=== PATIENT | male | born 1980 | race African-American/Black ===

== ENCOUNTER 2017-01-22 15:03 | Inpatient (IN) | payer OTHER ==
[2017-01-22 16:03] VITALS: BMI 24.5
--- NOTE | 2017-01-22 16:58 | HP ---
Admission ROS [facility] Chief Complaint: I WANT TO GO TO REHAB Allergies/Adverse Reactions: Allergies Allergy/AdvReac Type Severity Reaction Status Date / Time No Known Allergies Allergy Verified 01/22/17 16:25 History of Present Illness: 36 YEARS OLD MALE WITH LONG HISTORY OF COCAINE, MARIJUANA, NICOTINE DEPENDENCE, DENIES MEDICAL ISSUE DENIES MENTAL ILLNESS IS ADMITTED TO REHAB "HAD UNPROTECTED SEX" TAKING TRUVADA X 30 DAYS, HAS OWN MEDICATION Exam Limitations: No Limitations - Ebola screening Have you traveled outside of the country in the last 21 days: No Have you had contact with anyone from an Ebola affected area: No Have you been sick,other than usual withdrawal symptoms: No Do you have a fever: No - Review of Systems Constitutional: Loss of Appetite, Unintentional Wgt. Loss, Unexplained wgt Loss EENT: reports: No Symptoms Reported Respiratory: reports: No Symptoms reported Cardiac: reports: No Symptoms Reported GI: reports: No Symptoms Reported : reports: No Symptoms Reported Musculoskeletal: reports: No Symptoms Reported Integumentary: reports: Rash (ON AND OFF YEARS) Neuro: reports: No Symptoms reported Endocrine: reports: No Symptoms Reported Hematology: reports: No Symptoms Reported Psychiatric: reports: No Sypmtoms Reported, Judgement Intact, Mood/Affect Appropiate, Orientated x3 Other Systems: Reviewed and Negative Patient History - Patient Medical History Hx Anemia: No Hx Asthma: No Hx Chronic Obstructive Pulmonary Disease (COPD): No Hx Cancer: No Hx Cardiac Disorders: No Hx Congestive Heart Failure: No Hx Hypertension: No Hx Hypercholesterolemia: No Hx Pacemaker: No HX Cerebrovascular Accident: No Hx Seizures: No Hx Dementia: No Hx Diabetes: No Hx Gastrointestinal Disorders: No Hx Liver Disease: No Hx Genitourinary Disorders: No Hx Sexually Transmitted Disorders: No Hx Renal Disease (ESRD): No Hx Thyroid Disease: No Hx Human Immunodeficiency Virus (HIV): No Hx Hepatitis C: No Hx Depression: No Hx Suicide Attempt: No Hx Bipolar Disorder: No Hx Schizophrenia: No - Patient Surgical History Past Surgical History: Yes Hx Neurologic Surgery: No Hx Cataract Extraction: No Hx Cardiac Surgery: No Hx Lung Surgery: No Hx Breast Surgery: No Hx Breast Biopsy: No Hx Abdominal Surgery: No Hx Appendectomy: No Hx Cholecystectomy: No Hx Genitourinary Surgery: No Hx Orthopedic Surgery: Yes (2007 RIGHT KNEE ) Anesthesia Reaction: No - PPD History Previous Implant?: Yes Documented Results: Negative w/o proof Implanted On Prior [facility] Admission?: No PPD to be Administered?: Yes - Smoking Cessation Smoking history: Current every day smoker Have you smoked in the past 12 months: Yes Aproximately how many cigarettes per day: 3 Hx Chewing Tobacco Use: No Initiated information on smoking cessation: Yes 'Breaking Loose' booklet given: 01/22/17 - Substance & Tx. History Hx Alcohol Use: No Hx Substance Use: Yes Substance Use Type: Cocaine, Marijuana, Opiates Hx Substance Use Treatment: Yes ([facility] - 01/14/17) - Substances Abused Heroin Route: Injection Frequency: 1-3 times last 30 days Amount used: 1 BAG Age of first use: 35 Date of Last Use: 01/20/17 Cocaine Route: Injection Frequency: Daily Amount used: 1/2 GRAM Age of first use: 35 Date of Last Use: 01/21/17 Family Disease History - Family Disease History Family History: Unremarkable Admission Physical Exam [facility] - Vital Signs Vital Signs: Vital Signs - 24 hr 01/22/17 16:01 Temperature 97.1 F L Pulse Rate 69 Respiratory 20 Rate Blood Pressure 126/89 - Physical General Appearance: Yes: No Apparent Distress, Appropriately Dressed, Thin HEENTM: Yes: Hearing grossly Normal, Normal ENT Inspection, Normocephalic, Normal Voice Respiratory: Yes: Chest Non-Tender, Lungs Clear, Normal Breath Sounds, No Respiratory Distress, No Accessory Muscle Use Neck: Yes: Supple, Trachea in good position Breast: Yes: Breasts Symetrical Cardiology: Yes: Regular Rhythm, Regular Rate, S1, S2 Abdominal: Yes: Non Tender, Soft Genitourinary: Yes: Within Normal Limits Back: Yes: Normal Inspection Musculoskeletal: Yes: full range of Motion, Gait Steady Extremities: Yes: Normal Inspection, Normal Range of Motion, Non-Tender Neurological: Yes: Fully Oriented, Alert, Motor Strength 5/5, Normal Mood/Affect , Normal Response Integumentary: Yes: Warm, Track [place] Lymphatic: Yes: Within Normal Limits - Diagnostic (1) Cocaine dependence, uncomplicated Current Visit: Yes Status: Chronic (2) Acneiform rash Current Visit: Yes Status: Chronic (3) Weight loss Current Visit: Yes Status: Acute Cleared for Admission [facility] - Detox or Rehab [facility] Level of Care: Observation Bed Detox Regimen/Protocol: Not Applicable Claeared for Rehab Admission: Yes [facility] Breath Alcohol Content Breath Alcohol Content: 0 Urine Drug Screen - Results Drug Screen Negative: No Urine Drug Screen Results: ERVIN-Cocaine, OPI-Opiates, BZO-Benzodiazepines
[2017-01-22] MEDS ORDERED: MAGNESIUM CITRATE 300 ML BOTTLE PO PRN (17:03)
[2017-01-22] MEDS ORDERED: P-EPHED 60MG/TRIPROLIDI 2.5MG TABLET PO PRN (17:03)
[2017-01-22] MEDS ORDERED: guaiFENesin/D-METHORPHAN HB 10 ML UNIT-DOSE CUPS PO PRN (17:03)
[2017-01-22] MEDS ORDERED: ACETAMINOPHEN 325 MG TABLET (FP) PO PRN (17:03)
[2017-01-22] MEDS ORDERED: hydrOXYzine PAMOATE 50 MG CAPSULE (FP) PO PRN (17:03)
[2017-01-22] MEDS ORDERED: LOPERAMIDE HCL 2 MG CAPSULE PO PRN (17:03)
[2017-01-22] MEDS ORDERED: MAG HYDROX/AL HYDROX/SIMETH 30 ML UNIT-DOSE CUP PO PRN (17:03)
[2017-01-22] MEDS ORDERED: IBUPROFEN 400 MG TABLET (FP) PO PRN (17:03)
[2017-01-22] MEDS ORDERED: NICOTINE POLACRILEX 2 MG GUM BUC PRN (17:03)
[2017-01-22] MEDS ORDERED: MAGNESIUM HYDROX 2400MG/30ML ORAL SUSPENSION 30 ML CUP PO PRN (17:03)
[2017-01-22] MEDS ORDERED: MENTHOL/PHENOL 1 EACH UD MM PRN (17:03)
[2017-01-22 21:44] LABS: URINE APPEARANCE SLCLOUDY; URINE BILIRUBIN NEGATIVE (NEGATIVE); URINE BLOOD NEGATIVE (NEGATIVE); URINE COLOR DKYELLOW; URINE GLUCOSE (UA) NEGATIVE (NEGATIVE); URINE KETONE TRACE (NEGATIVE); URINE LEUK ESTERASE NEGATIVE (NEGATIVE); URINE NITRITE NEGATIVE (NEGATIVE); URINE PROTEIN NEGATIVE (NEGATIVE); URINE UROBILINOGEN 4.0 E.U/dl mg/dL (0.2-1.0)
[2017-01-22] MEDS ORDERED: TUBERCULIN PPD 5 TU/0.1ML VIAL ID ONE (22:56)
[2017-01-22] MEDS: MINERAL OIL/PETROLAT/WATER TOPICAL CREAM 113 GM JAR TP SCH (23:07)
[2017-01-22] MEDS: CLOTRIMAZOLE 1% CREAM 15 GM TUBE TP SCH (23:07)
[2017-01-22] MEDS: THIAMINE HCL 100 MG TABLET (FP) PO SCH (23:09)
[2017-01-23] MEDS: NICOTINE 14 MG/24 HOURS TOPICAL PATCH TD SCH (10:53)
[2017-01-23] MEDS: CLOTRIMAZOLE 1% CREAM 15 GM TUBE TP SCH ×2 (10:53→21:47)
[2017-01-23] MEDS: PRENATAL VITAMINS W/ FOLIC ACID TABLET (FP) PO SCH (10:53)
[2017-01-23] MEDS: EMTRICITABINE 200MG/TENOFOVIR 300MG PO SCH (10:54)
--- NOTE | 2017-01-23 12:27 | EKG ---
Test Reason : Blood Pressure : / mmHG Vent. Rate : 069 BPM Atrial Rate : 069 BPM P-R Int : 154 ms QRS Dur : 088 ms QT Int : 388 ms P-R-T Axes : 071 067 058 degrees QTc Int : 415 ms NORMAL SINUS RHYTHM NORMAL ECG NO PREVIOUS ECGS AVAILABLE Confirmed by VIDAL MALONE MD ([id number]) on 01/23/2017 12:27:08 PM Referred By: Confirmed By:VIDAL MALONE MD
[2017-01-23 13:35] LABS: ALBUMIN 3.2 g/dl (3.4-5.0); ANION GAP 8 (8-16); CALCIUM 8.3 mg/dL (8.5-10.1); CO2 27 mmol/L (21-32); GLUCOSE,RANDOM 111 mg/dL (74-106); SGOT/AST 15 U/L (15-37); SGPT/ALT 20 U/L (12-78)
[2017-01-23 13:37] LABS: ALK PHOS 74 U/L (45-117); BILIRUBIN,TOTAL 0.3 mg/dL (0.2-1.0); TOT PROT 6.4 g/dl (6.4-8.2)
[2017-01-23 13:52] LABS: MCH 27.3 pg (25.7-33.7); MCHC 31.9 g/dl (32.0-35.9); MEAN CELL VOLUME 85.6 fl (80-96); MEAN PLT VOLUME 8.8 fl (7.5-11.1); PLATELET COUNT 219 K/MM3 (134-434); RDW 13.7 % (11.9-15.9); WHITE BLOOD COUNT 4.2 K/mm3 (4.0-10.0)
[2017-01-23 14:05] LABS: HIV 1 & 2 AB NEGATIVE; HIV 1 AGp24 NEGATIVE
--- NOTE | 2017-01-23 14:15 | HP ---
Psychiatrist Admission - Data Date of interview: 01/23/17 Admission source: [facility] Identifying data: This is the first 5n inpatient rehabiliutation admission for this 36 year old single unemployed and homeless Black male. Medical History: Reported he had unprotected oral sex and is taking truvada. Smokes 3 cigarettes daily. Psychiatric History: Denies history of psychiatric treatment. Physical/Sexual Abuse/Trauma History: Denies history of sexual, physical and verbal abuse. Vital Signs: Vital Signs - 24 hr 01/22/17 01/22/17 01/23/17 16:01 19:26 01:35 Temperature 97.1 F L Pulse Rate 69 75 Respiratory 20 18 18 Rate Blood Pressure 126/89 131/79 01/23/17 01/23/17 03:47 07:26 Temperature 97.4 F L Pulse Rate 67 Respiratory 18 18 Rate Blood Pressure 141/92 Allergies/Adverse Reactions: Allergies Allergy/AdvReac Type Severity Reaction Status Date / Time No Known Allergies Allergy Verified 01/22/17 16:25 Date of last physical exam: 01/22/17 Concur with the findings of this exam: Yes - Substance Abuse/Tx History Hx Alcohol Use: Yes (beer) Hx Substance Use: Yes Substance Use Type: Cocaine (2 gr daily injecting), Heroin Hx Substance Use Treatment: Yes (x2 detx, this is 1st rehab.) - Admission Criteria Previous failed treatment: Yes Poor recovery environment: Yes Comorbidities: No Lacks judgement: Yes Mental Status Exam - Mental Status Exam Alert and Oriented to: Time, Place, Person Cognitive Function: Good Patient Appearance: Well Groomed Mood: Sad Affect: Appropriate, Mood Congruent Patient Behavior: Appropriate, Cooperative Speech Pattern: Clear, Appropriate Voice Loudness: Normal Thought Process: Intact, Goal Oriented Thought Disorder: Not Present Hallucinations: Denies Suicidal Ideation: Denies Homicidal Ideation: Denies Insight/Judgement: Fair Sleep: Fair Appetite: Fair Muscle strength/Tone: Normal Gait/Station: Normal Psychiatric Findings - Problem List ([place] 1, 2,3) (1) Opioid dependence Current Visit: Yes Status: Acute (2) Cocaine dependence Current Visit: Yes Status: Acute (3) Nicotine dependence Current Visit: Yes Status: Acute (4) Alcohol abuse Current Visit: Yes Status: Acute - Initial Treatment Plan Initial Treatment Plan: monitor progress as needed.
[2017-01-23] MEDS: THIAMINE HCL 100 MG TABLET (FP) PO SCH (21:46)
[2017-01-23] MEDS: diphenhydrAMINE HCL 50 MG CAPSULE PO PRN (21:46)
[2017-01-23] MEDS: MINERAL OIL/PETROLAT/WATER TOPICAL CREAM 113 GM JAR TP SCH (21:47)
[2017-01-24] MEDS: NICOTINE 14 MG/24 HOURS TOPICAL PATCH TD SCH (10:36)
[2017-01-24] MEDS: CLOTRIMAZOLE 1% CREAM 15 GM TUBE TP SCH ×2 (10:36→21:53)
[2017-01-24] MEDS: EMTRICITABINE 200MG/TENOFOVIR 300MG PO SCH (10:36)
[2017-01-24] MEDS: PRENATAL VITAMINS W/ FOLIC ACID TABLET (FP) PO SCH (10:36)
[2017-01-24] MEDS ORDERED: PT OWN MED DRAWER 7, Y5N ONE (12:15)
[2017-01-24] MEDS: valACYclovir HCL 500 MG TABLET (FP) PO SCH ×2 (13:21→21:51)
[2017-01-24] MEDS: HYDROCORTISONE 0.5% TOPICAL OINTMENT TUBE TP SCH ×2 (14:13→21:52)
[2017-01-24] MEDS: THIAMINE HCL 100 MG TABLET (FP) PO SCH (21:51)
[2017-01-24] MEDS: diphenhydrAMINE HCL 50 MG CAPSULE PO PRN (21:52)
[2017-01-24] MEDS: MINERAL OIL/PETROLAT/WATER TOPICAL CREAM 113 GM JAR TP SCH (21:53)
[2017-01-25] MEDS: HYDROCORTISONE 0.5% TOPICAL OINTMENT TUBE TP SCH ×2 (10:35→21:52)
[2017-01-25] MEDS: valACYclovir HCL 500 MG TABLET (FP) PO SCH ×2 (10:35→21:51)
[2017-01-25] MEDS: CLOTRIMAZOLE 1% CREAM 15 GM TUBE TP SCH ×2 (10:39→21:52)
[2017-01-25] MEDS: PRENATAL VITAMINS W/ FOLIC ACID TABLET (FP) PO SCH (10:40)
[2017-01-25] MEDS: NICOTINE 14 MG/24 HOURS TOPICAL PATCH TD SCH (10:40)
[2017-01-25] MEDS: EMTRICITABINE 200MG/TENOFOVIR 300MG PO SCH (10:40)
[2017-01-25] MEDS ORDERED: PNEUMOCOCCAL 23 VACCINE 0.5 ML VIAL IM ONE (12:00)
[2017-01-25] MEDS: THIAMINE HCL 100 MG TABLET (FP) PO SCH (21:51)
[2017-01-25] MEDS: diphenhydrAMINE HCL 50 MG CAPSULE PO PRN (21:52)
[2017-01-25] MEDS: MINERAL OIL/PETROLAT/WATER TOPICAL CREAM 113 GM JAR TP SCH (21:52)
[2017-01-26] MEDS: diphenhydrAMINE HCL 50 MG CAPSULE PO PRN ×2 (00:32→21:52)
[2017-01-26] MEDS: PRENATAL VITAMINS W/ FOLIC ACID TABLET (FP) PO SCH (10:17)
[2017-01-26] MEDS: valACYclovir HCL 500 MG TABLET (FP) PO SCH ×2 (10:17→21:51)
[2017-01-26] MEDS: EMTRICITABINE 200MG/TENOFOVIR 300MG PO SCH (10:17)
[2017-01-26] MEDS: NICOTINE 14 MG/24 HOURS TOPICAL PATCH TD SCH (10:18)
[2017-01-26] MEDS: CLOTRIMAZOLE 1% CREAM 15 GM TUBE TP SCH ×2 (10:18→21:53)
[2017-01-26] MEDS: HYDROCORTISONE 0.5% TOPICAL OINTMENT TUBE TP SCH ×2 (10:18→21:53)
--- NOTE | 2017-01-26 21:35 | PN ---
[facility] Progress Note Note: ASKED TO SEE PT FOR A SKIN TEAR TO R FOURTH DIGIT PER CLIENT HIS R 4TH DIGIT GOT CAUGHT IN THE DOOR WHILE TRYING TO CLOSE IT EARLIER TODAY. DENIES FEVER, DECREASE ROM, PAIN Last Vital Signs Temp Pulse Resp BP Pulse Ox 98.3 F 61 18 144/72 01/25/17 07:23 01/25/17 07:23 01/26/17 03:30 01/25/17 07:23 R FOURTH DIGIT NOTED WITH 1CM SKIN TEAR/ LACERATION. NO S/SX OF INFECTION. FROM NOTED TO DIGIT W/O LIMITATIONS R FOURTH DIGIT SKIN TEAR BACITRACIN DAILY TO AFFECTED AREA DAILY X 10DAYS AFTER WASHING WITH SOAP AND WATER. THEN COVER WITH DRY DRESSING MONITOR FOR S/SX OF INFECTION
[2017-01-26] MEDS: THIAMINE HCL 100 MG TABLET (FP) PO SCH (21:51)
[2017-01-26] MEDS: BACITRACIN 0.9 GM PACKET TP SCH (21:53)
[2017-01-26] MEDS: MINERAL OIL/PETROLAT/WATER TOPICAL CREAM 113 GM JAR TP SCH (21:53)
[2017-01-27] MEDS: BACITRACIN 0.9 GM PACKET TP SCH (11:00)
[2017-01-27] MEDS: EMTRICITABINE 200MG/TENOFOVIR 300MG PO SCH (11:00)
[2017-01-27] MEDS: PRENATAL VITAMINS W/ FOLIC ACID TABLET (FP) PO SCH (11:00)
[2017-01-27] MEDS: valACYclovir HCL 500 MG TABLET (FP) PO SCH ×2 (11:00→22:02)
[2017-01-27] MEDS: CLOTRIMAZOLE 1% CREAM 15 GM TUBE TP SCH ×2 (11:00→22:03)
[2017-01-27] MEDS: HYDROCORTISONE 0.5% TOPICAL OINTMENT TUBE TP SCH ×2 (11:01→22:03)
[2017-01-27] MEDS: NICOTINE 14 MG/24 HOURS TOPICAL PATCH TD SCH (11:01)
[2017-01-27] MEDS: THIAMINE HCL 100 MG TABLET (FP) PO SCH (22:02)
[2017-01-27] MEDS: MINERAL OIL/PETROLAT/WATER TOPICAL CREAM 113 GM JAR TP SCH (22:03)
[2017-01-27] MEDS: diphenhydrAMINE HCL 50 MG CAPSULE PO PRN (23:48)
[2017-01-28] MEDS: PRENATAL VITAMINS W/ FOLIC ACID TABLET (FP) PO SCH (10:28)
[2017-01-28] MEDS: valACYclovir HCL 500 MG TABLET (FP) PO SCH ×2 (10:28→21:46)
[2017-01-28] MEDS: EMTRICITABINE 200MG/TENOFOVIR 300MG PO SCH (10:28)
[2017-01-28] MEDS: BACITRACIN 0.9 GM PACKET TP SCH (10:28)
[2017-01-28] MEDS: HYDROCORTISONE 0.5% TOPICAL OINTMENT TUBE TP SCH ×2 (10:29→21:48)
[2017-01-28] MEDS: NICOTINE 14 MG/24 HOURS TOPICAL PATCH TD SCH (10:30)
[2017-01-28] MEDS: CLOTRIMAZOLE 1% CREAM 15 GM TUBE TP SCH ×2 (12:29→21:46)
[2017-01-28] MEDS: THIAMINE HCL 100 MG TABLET (FP) PO SCH (21:46)
[2017-01-28] MEDS: MINERAL OIL/PETROLAT/WATER TOPICAL CREAM 113 GM JAR TP SCH (21:46)
[2017-01-28] MEDS: diphenhydrAMINE HCL 50 MG CAPSULE PO PRN (21:58)
[2017-01-29 07:20] VITALS: TEMP 97.9
[2017-01-29] MEDS: PRENATAL VITAMINS W/ FOLIC ACID TABLET (FP) PO SCH (10:38)
[2017-01-29] MEDS: BACITRACIN 0.9 GM PACKET TP SCH (10:38)
[2017-01-29] MEDS: valACYclovir HCL 500 MG TABLET (FP) PO SCH ×2 (10:38→21:44)
[2017-01-29] MEDS: EMTRICITABINE 200MG/TENOFOVIR 300MG PO SCH (10:38)
[2017-01-29] MEDS: NICOTINE 14 MG/24 HOURS TOPICAL PATCH TD SCH (10:39)
[2017-01-29] MEDS: CLOTRIMAZOLE 1% CREAM 15 GM TUBE TP SCH ×2 (10:40→21:44)
[2017-01-29] MEDS: HYDROCORTISONE 0.5% TOPICAL OINTMENT TUBE TP SCH ×2 (10:40→21:44)
[2017-01-29] MEDS: THIAMINE HCL 100 MG TABLET (FP) PO SCH (21:44)
[2017-01-29] MEDS: MINERAL OIL/PETROLAT/WATER TOPICAL CREAM 113 GM JAR TP SCH (21:44)
[2017-01-29] MEDS: diphenhydrAMINE HCL 50 MG CAPSULE PO PRN (21:44)
[2017-01-30 07:15] VITALS: BP 115/68; PULSE 67
[2017-01-30] MEDS: BACITRACIN 0.9 GM PACKET TP SCH (11:06)
[2017-01-30] MEDS: EMTRICITABINE 200MG/TENOFOVIR 300MG PO SCH (11:07)
[2017-01-30] MEDS: PRENATAL VITAMINS W/ FOLIC ACID TABLET (FP) PO SCH (11:07)
[2017-01-30] MEDS: valACYclovir HCL 500 MG TABLET (FP) PO SCH (11:07)
--- NOTE | 2017-01-30 11:07 | PN ---
Psychiatric Progress Note Vital Signs: Vital Signs Period Temp Pulse Resp BP Sys/Dickey Pulse Ox Last 24 Hr 97.9 F 67 16-16 115/68 Date of Session: 01/30/17 Chief Complaint:: discharge visit HPI: The patient addressing cocaine, opioid, nicotine dependence, alcohol abuse. ROS: WNL Current Medications: Active Medications Generic Name Dose Route Start Last Admin Trade Name Freq PRN Reason Stop Dose Admin Acetaminophen 650 mg 01/22/17 17:03 Tylenol - PO Q4H PRN PAIN Al Hydroxide/Mg Hydroxide 30 ml 01/22/17 17:03 Mylanta Oral Suspension - PO Q6H PRN DYSPEPSIA Bacitracin 0.9 gm 01/26/17 21:30 01/29/17 10:38 Bacitracin - TP 02/05/17 21:29 0.9 gm DAILY JENNA Administration Clotrimazole 1 applic 01/22/17 22:00 01/29/17 21:44 Lotrimin 1% Cream - TP 1 applic BID JENNA Administration Diphenhydramine HCl 50 mg 01/22/17 17:03 01/29/17 21:44 Benadryl - PO 50 mg HSMR1 PRN Administration INSOMNIA Emtricitabine/Tenofovir 1 tab 01/23/17 10:00 01/29/17 10:38 Truvada PO 02/06/17 09:59 1 tab DAILY JENNA Administration Eucalyptus/Menthol/Phenol/Sorbitol 1 each 01/22/17 17:03 Cepastat Lozenge - MM Q4H PRN SORE THROAT Guaifenesin 10 ml 01/22/17 17:03 Robitussin Dm - PO Q6H PRN COUGH Hydrocortisone 1 applic 01/24/17 12:30 01/29/17 21:44 Hytone 0.5% Ointment - TP 1 applic BID JENNA Administration Hydroxyzine Pamoate 50 mg 01/22/17 17:03 Vistaril - PO Q4H PRN AGITATION Ibuprofen 400 mg 01/22/17 17:03 Motrin - PO Q6H PRN SEVERE PAIN Loperamide HCl 4 mg 01/22/17 17:03 Imodium - PO Q6H PRN DIARRHEA Magnesium Citrate 300 ml 01/22/17 17:03 Citroma - PO Q48H PRN CONSTIPATION Magnesium Hydroxide 30 ml 01/22/17 17:03 Milk Of Magnesia - PO DAILY PRN CONSTIPATION Multi-Ingredient Lotion 1 applic 01/22/17 22:00 01/29/17 21:44 Eucerin (Small Jar) - TP 1 applic HS JENNA Administration Nicotine 14 mg 01/23/17 10:00 01/29/17 10:39 Nicoderm Patch - TD Not Given DAILY JENNA Nicotine Polacrilex 2 mg 01/22/17 17:03 Nicorette Gum - BUC Q2H PRN NICOTINE REPLACEMENT RX Multivit/Folic Acid/Iron 1 tab 01/23/17 10:00 01/29/17 10:38 Vitamins ([facility]) - PO 1 tab DAILY JENNA Administration Pseudoephedrine/Triprolidine 1 combo 01/22/17 17:03 Actifed - PO TID PRN NASAL CONGESTION Thiamine HCl 100 mg 01/22/17 22:00 01/29/17 21:44 Vitamin B1 - PO 100 mg HS JENNA Administration Valacyclovir HCl 500 mg 01/24/17 12:30 01/29/17 21:44 Valtrex - PO 500 mg BID JENNA Administration Current Side Effect: No Lab tests ordered: No Lab tests reviewed: Yes Provider note:: The patient requested to be discharged today, he completed 9 days of treatment and met his identified goals, will continue to address his issues at [facility]. Patient was encouraged to utilize all supports available to prevent relaspes. Patient is stable for discharge today. Total face to face time:: 15 Mental Status Exam - Mental Status Exam Alert and Oriented to: Time, Place, Person Cognitive Function: Good Patient Appearance: Well Groomed Mood: Hopeful Affect: Appropriate, Mood Congruent Patient Behavior: Appropriate, Cooperative Speech Pattern: Clear, Appropriate Voice Loudness: Normal Thought Process: Intact, Goal Oriented Thought Disorder: Not Present Hallucinations: Denies Suicidal Ideation: Denies Homicidal Ideation: Denies Insight/Judgement: Fair Sleep: Fair Appetite: Fair Muscle strength/Tone: Normal Gait/Station: Normal Psychiatric Treatment Plan - Problem List (1) Opioid dependence Current Visit: Yes (2) Cocaine dependence Current Visit: Yes (3) Nicotine dependence Current Visit: Yes (4) Alcohol abuse Current Visit: Yes
[2017-01-30] MEDS: NICOTINE 14 MG/24 HOURS TOPICAL PATCH TD SCH (11:08)
[2017-01-30] MEDS: CLOTRIMAZOLE 1% CREAM 15 GM TUBE TP SCH (11:08)
[2017-01-30] MEDS: HYDROCORTISONE 0.5% TOPICAL OINTMENT TUBE TP SCH (11:08)
--- NOTE | 2017-01-30 11:58 | PN ---
[facility] Progress Note Note: Called to floor by, patient reportedly was in shower when ceiling tiles fell on head, dropped ceiling cardboard reprotedly fell on head, patisuzin reports waking up on floor of shower, shower alec ripped off , reports pain right knee and shoulder injury left side of head covered. REfuses examination, would like to have regular dischargeas palnned, refuses ER treatment and recommended xrays and CT head. Offered transportation to [facility] ED, patient signing he refuses ED treatment as recommended will go to [facility] where his mother works. o/e patient upset, A and Ox3, ambulating without assistance, head injury covered by head cloth unable to exmaine. FLAKITO osborne,
== END 2017-01-30 12:10 | disposition home or self-care (01) | DRG 772 ==
LOC: YASAS 15:03 → Y5N 17:42
PROVIDERS: ADMIT Psychiatry & Neurology Psychiatry; ATTEND Psychiatry & Neurology Psychiatry
PROC: HZ42ZZZ Group Counseling for Substance Abuse Treatment, Cognitive-Behavioral (ICD-10-PCS; principal; 2017-01-22)
DX: F11.20 Opioid dependence, uncomplicated (principal); F10.20 Alcohol dependence, uncomplicated; F14.20 Cocaine dependence, uncomplicated; L70.8 Other acne; Z59.0 Homelessness
CPT/HCPCS: 36415; 80053; 81003; 85027; 86593; 87389; 90732; 93005; 93010; G0009

== ENCOUNTER 2018-05-09 11:27 | Inpatient (IN) | payer OTHER ==
[2018-05-09 12:14] VITALS: BMI 24.0
--- NOTE | 2018-05-09 12:59 | HP ---
COWS - Scale Resting Pulse: 0= RI 80 or Below Sweatin= Chills/Flushing Restless Observation: 0= Sits Still Pupil Size: 0= Normal to Room Light Bone or Joint Aches: 1= Mild Discomfort Runny Nose/ Eye Tearin= Runny Nose/Eyes GI Upset > 30mins: 2= Nausea/Diarrhea Tremor Observation: 1= Tremor [place], Not Seen Yawning Observation: 1= 1-2x During Session Anxiety or Irritability: 1=Feels Anxious/Irritable Goose Flesh Skin: 0=Smooth Skin COWS Score: 9 CIWA Score - Admission Criteria [facility] Guidelines: Admission for Medically Managed Detox: Requires at least one of the followin. CIWA greater than 12 2. Seizures within the past 24 hours 3. Delirium tremens within the past 24 hours 4. Hallucinations within the past 24 hours 5. Acute intervention needed for co occurring medical disorder 6. Acute intervention needed for co occurring psychiatric disorder 7. Severe withdrawal that cannot be handled at a lower level of care (continued vomiting, continued diarrhea, abnormal vital signs) requiring intravenous medication and/or fluids 8. Admission ROS [facility] Chief Complaint: I don't want to wake up a drug addict on [place] Allergies/Adverse Reactions: Allergies Allergy/AdvReac Type Severity Reaction Status Date / Time apple AdvReac Intermediate Rash Verified 05/09/18 12:53 History of Present Illness: 38 yo gentleman here for detox from opiates, also using cocaine. History of overdoses, last time in detox here in January 2017. Previous treatment with suboxone and methadone program, which he left a month ago (50mg). Denies seizures but does have black outs. Exam Limitations: No Limitations - Ebola screening Have you been sick,other than usual withdrawal symptoms: No - Review of Systems Constitutional: Loss of Appetite, Malaise, Night Sweats, Changes in sleep, Weakness, Unintentional Wgt. Loss EENT: reports: Blurred Vision, Nose Congestion Respiratory: reports: No Symptoms reported Cardiac: reports: No Symptoms Reported GI: reports: Poor Appetite, Indigestion : reports: Dysuria Musculoskeletal: reports: Back Pain, Muscle Pain Integumentary: reports: No Symptoms Reported Neuro: reports: Headache Endocrine: reports: No Symptoms Reported Hematology: reports: No Symptoms Reported Psychiatric: reports: Judgement Intact, Mood/Affect Appropiate, Anxious Other Systems: Reviewed and Negative Patient History - Patient Medical History Hx Anemia: No Hx Asthma: No Hx Chronic Obstructive Pulmonary Disease (COPD): No Hx Cancer: No Hx Cardiac Disorders: No Hx Congestive Heart Failure: No Hx Hypertension: No Hx Hypercholesterolemia: No Hx Pacemaker: No HX Cerebrovascular Accident: No Hx Seizures: No Hx Dementia: No Hx Diabetes: No Hx Gastrointestinal Disorders: No Hx Liver Disease: No Hx Genitourinary Disorders: No Hx Sexually Transmitted Disorders: No Hx Renal Disease (ESRD): No Hx Thyroid Disease: No Hx Human Immunodeficiency Virus (HIV): No Hx Hepatitis C: Yes (treated) Hx Depression: No Hx Suicide Attempt: No Hx Bipolar Disorder: No Hx Schizophrenia: No - Patient Surgical History Past Surgical History: Yes Hx Neurologic Surgery: No Hx Cataract Extraction: No Hx Cardiac Surgery: No Hx Lung Surgery: No Hx Breast Surgery: No Hx Breast Biopsy: No Hx Abdominal Surgery: No Hx Appendectomy: No Hx Cholecystectomy: No Hx Genitourinary Surgery: No Hx Orthopedic Surgery: Yes (2007 RIGHT KNEE ) Anesthesia Reaction: No - PPD History Previous Implant?: Yes Documented Results: Negative w/proof Implanted On Prior R Admission?: Yes Date: 01/24/17 PPD to be Administered?: Yes - Reproductive History Patient is a Female of Child Bearing Age (11 -55 yrs old): No (male) - Smoking Cessation Smoking history: Current every day smoker Have you smoked in the past 12 months: Yes Aproximately how many cigarettes per day: 3 Hx Chewing Tobacco Use: No Initiated information on smoking cessation: Yes 'Breaking Loose' booklet given: 05/09/18 (give on floor) - Substance & Tx. History Hx Alcohol Use: No Hx Substance Use: Yes Substance Use Type: Cocaine, Heroin, Marijuana Hx Substance Use Treatment: Yes (detox, rehab, methadone in past, suboxone in past) - Substances Abused heroin Route: Injection Frequency: Daily Amount used: 1 bundle Age of first use: 36 Date of Last Use: 05/08/18 cocaine Route: Injection Frequency: Daily Amount used: 1gm Age of first use: 36 Date of Last Use: 05/08/18 marijuana Route: Smoking Frequency: 1-2 times per week Amount used: 1 joint Age of first use: 14 Date of Last Use: 05/08/18 Family Disease History - Family Disease History Family Disease History: Heart Disease: Mother (htn, living), Other: Father ( living), Mother, Brother (one, living, healthy), Daughter (age 3, healthy) Admission Physical Exam [facility] - Vital Signs Vital Signs: Vital Signs - 24 hr 05/09/18 12:11 Temperature 97.4 F L Pulse Rate 78 Respiratory 18 Rate Blood Pressure 147/94 - Physical General Appearance: Yes: Nourished, Appropriately Dressed, Mild Distress, Anxious HEENTM: Yes: Hearing grossly Normal, Normal ENT Inspection, Normocephalic, Normal Voice Respiratory: Yes: Normal Breath Sounds, No Respiratory Distress Neck: Yes: No masses,lesions,Nodules Breast: Yes: Breast Exam Deferred Cardiology: Yes: Regular Rhythm, Regular Rate Abdominal: Yes: Flat, Soft Genitourinary: Yes: Hesitency Back: Yes: Normal Inspection Musculoskeletal: Yes: full range of Motion, Gait Steady, Back pain, Muscle Pain Extremities: Yes: Normal Inspection, Normal Range of Motion, Non-Tender Neurological: Yes: Alert, Motor Strength 5/5, Normal Mood/Affect, Normal Response Integumentary: Yes: Normal Color, Warm Lymphatic: Yes: Within Normal Limits - Diagnostic (1) Opioid dependence with withdrawal Current Visit: Yes Status: Chronic (2) Cocaine dependence Current Visit: Yes Status: Chronic Qualifiers: Substance use status: uncomplicated Qualified Code(s): F14.20 - Cocaine dependence, uncomplicated (3) Weight loss Current Visit: Yes Status: Acute Cleared for Admission [facility] - Detox or Rehab [facility] Level of Care: Medically Managed Detox Regimen/Protocol: Methadone [facility] Breath Alcohol Content Breath Alcohol Content: 0 Urine Drug Screen - Results Drug Screen Negative: No Urine Drug Screen Results: THC-Marijuana, ERVIN-Cocaine, OPI-Opiates
[2018-05-09] MEDS ORDERED: ACETAMINOPHEN 325 MG TABLET (FP) PO PRN (13:08)
[2018-05-09] MEDS ORDERED: MAGNESIUM HYDROX 2400MG/30ML ORAL SUSPENSION 30 ML CUP PO PRN (13:08)
[2018-05-09] MEDS ORDERED: P-EPHED 60MG/TRIPROLIDI 2.5MG TABLET PO PRN (13:08)
[2018-05-09] MEDS ORDERED: IBUPROFEN 400 MG TABLET (FP) PO PRN (13:08)
[2018-05-09] MEDS ORDERED: MAG HYDROX/AL HYDROX/SIMETH 30 ML UNIT-DOSE CUP PO PRN (13:08)
[2018-05-09] MEDS ORDERED: guaiFENesin/D-METHORPHAN HB 10 ML UNIT-DOSE CUPS PO PRN (13:08)
[2018-05-09] MEDS ORDERED: LOPERAMIDE HCL 2 MG CAPSULE PO PRN (13:08)
[2018-05-09] MEDS ORDERED: MAGNESIUM CITRATE 300 ML BOTTLE PO PRN (13:08)
[2018-05-09] MEDS ORDERED: MENTHOL/PHENOL 1 EACH UD MM PRN (13:08)
[2018-05-09] MEDS ORDERED: METHADONE HCL 10 MG TABLET (FOR DETOX USE ONLY) PO ONE ×2 (14:30→23:00)
[2018-05-09] MEDS: diazePAM 5 MG TABLET PO PRN (14:40)
[2018-05-09] MEDS ORDERED: MELATONIN 5 MG TABLETS PO PRN (22:00)
[2018-05-09] MEDS: THIAMINE HCL 100 MG TABLET (FP) PO SCH (22:13)
[2018-05-10] MEDS ORDERED: METHADONE HCL 10 MG TABLET (FOR DETOX USE ONLY) PO ONE (10:00)
[2018-05-10] MEDS: diazePAM 5 MG TABLET PO PRN (10:17)
[2018-05-10] MEDS: PRENATAL VITAMINS W/ FOLIC ACID TABLET (FP) PO SCH (10:17)
[2018-05-10 10:26] LABS: ALBUMIN 3.2 g/dl (3.4-5.0); ALK PHOS 78 U/L (45-117); ANION GAP 4 MMOL/L (8-16); BILIRUBIN,TOTAL 0.6 mg/dL (0.2-1); BLOOD UREA NITROGEN 11 mg/dL (7-18); CALCIUM 8.1 mg/dL (8.5-10.1); CHLORIDE 108 mmol/L (98-107); CO2 28 mmol/L (21-32); CREATININE 0.9 mg/dL (0.55-1.3); GLUCOSE,RANDOM 83 mg/dL (74-106); POTASSIUM 4.1 mmol/L (3.5-5.1); SGOT/AST 44 U/L (15-37); SGPT/ALT 45 U/L (13-61); SODIUM 140 mmol/L (136-145); TOT PROT 6.8 g/dl (6.4-8.2)
[2018-05-10 10:59] LABS: HEMATOCRIT 40.6 % (35.4-49); HEMOGLOBIN 12.8 GM/dL (11.7-16.9); MCH 27.2 pg (25.7-33.7); MCHC 31.5 g/dl (32.0-35.9); MEAN CELL VOLUME 86.3 fl (80-96); MEAN PLT VOLUME 8.8 fl (7.5-11.1); PLATELET COUNT 219 K/MM3 (134-434); RDW 13.7 % (11.9-15.9); WHITE BLOOD COUNT 4.4 K/mm3 (4.0-10.0)
--- NOTE | 2018-05-10 11:31 | PN ---
S COWS - Scale Resting Pulse: 0= ID 80 or Below Sweatin= Chills/Flushing Restless Observation: 0= Sits Still Pupil Size: 1= Pupils >than Normal Bone or Joint Aches: 2= Severe Diffuse Aches Runny Nose/ Eye Tearin= Nasal Congestion GI Upset > 30mins: 2= Nausea/Diarrhea Tremor Observation of Outstretched Hands: 1= Tremor [place], Not Seen Yawning Observation: 2= >3x During Session Anxiety or Irritability: 1=Feels Anxious/Irritable Goose Flesh Skin: 0=Smooth Skin COWS Score: 11 S Progress Note (SOAP) Subjective: joints pain body aches muscle cramp tremor sweat Objective: 05/10/18 11:30 Vital Signs Temperature 97.5 F L 05/10/18 09:26 Pulse Rate 67 05/10/18 09:26 Respiratory Rate 18 05/10/18 09:26 Blood Pressure 141/80 05/10/18 09:26 O2 Sat by Pulse Oximetry (%) Laboratory Last Values WBC 4.4 K/mm3 (4.0-10.0) 05/10/18 07:30 RBC 4.70 M/mm3 (4.00-5.60) 05/10/18 07:30 Hgb 12.8 GM/dL (11.7-16.9) 05/10/18 07:30 Hct 40.6 % (35.4-49) 05/10/18 07:30 MCV 86.3 fl (80-96) 05/10/18 07:30 MCH 27.2 pg (25.7-33.7) 05/10/18 07:30 MCHC 31.5 g/dl (32.0-35.9) L 05/10/18 07:30 RDW 13.7 % (11.9-15.9) 05/10/18 07:30 Plt Count 219 K/MM3 (134-434) 05/10/18 07:30 MPV 8.8 fl (7.5-11.1) 05/10/18 07:30 Sodium 140 mmol/L (136-145) 05/10/18 07:30 Potassium 4.1 mmol/L (3.5-5.1) 05/10/18 07:30 Chloride 108 mmol/L (98-107) H 05/10/18 07:30 Carbon Dioxide 28 mmol/L (21-32) 05/10/18 07:30 Anion Gap 4 MMOL/L (8-16) L 05/10/18 07:30 BUN 11 mg/dL (7-18) 05/10/18 07:30 Creatinine 0.9 mg/dL (0.55-1.3) 05/10/18 07:30 Creat Clearance w eGFR > 60 (>60) 05/10/18 07:30 Random Glucose 83 mg/dL (74-106) 05/10/18 07:30 Calcium 8.1 mg/dL (8.5-10.1) L 05/10/18 07:30 Total Bilirubin 0.6 mg/dL (0.2-1) 05/10/18 07:30 AST 44 U/L (15-37) H 05/10/18 07:30 ALT 45 U/L (13-61) 05/10/18 07:30 Alkaline Phosphatase 78 U/L (45-117) 05/10/18 07:30 Total Protein 6.8 g/dl (6.4-8.2) 05/10/18 07:30 Albumin 3.2 g/dl (3.4-5.0) L 05/10/18 07:30 lab noted Assessment: 05/10/18 11:31 withdrawal sx Plan: continue detox
[2018-05-10] MEDS: THIAMINE HCL 100 MG TABLET (FP) PO SCH (22:19)
[2018-05-11] MEDS ORDERED: METHADONE HCL 5 MG TABLET (FOR DETOX USE ONLY) PO ONE (10:00)
[2018-05-11] MEDS: PRENATAL VITAMINS W/ FOLIC ACID TABLET (FP) PO SCH (10:15)
--- NOTE | 2018-05-11 11:15 | PN ---
[facility] COWS - Scale Resting Pulse: 0= DC 80 or Below Sweatin=Flushed/Facial Moisture Restless Observation: 1= Difficult to Sit Still Pupil Size: 0= Normal to Room Light Bone or Joint Aches: 2= Severe Diffuse Aches Runny Nose/ Eye Tearin= Runny Nose/Eyes GI Upset > 30mins: 0= None Tremor Observation of Outstretched Hands: 2= Slight Tremor Visible Yawning Observation: 2= >3x During Session Anxiety or Irritability: 2=Irritable/Anxious Goose Flesh Skin: 0=Smooth Skin COWS Score: 13 [facility] Progress Note (SOAP) Subjective: body aches sweats shakes interrupted sleep irritable agitation Objective: 05/11/18 11:14 Vital Signs Temperature 97.7 F 05/11/18 09:06 Pulse Rate 72 05/11/18 09:06 Respiratory Rate 18 05/11/18 09:06 Blood Pressure 136/87 05/11/18 09:06 O2 Sat by Pulse Oximetry (%) Laboratory Tests 05/10/18 05/10/18 05/10/18 07:30 07:30 07:30 WBC 4.4 RBC 4.70 Hgb 12.8 Hct 40.6 MCV 86.3 MCH 27.2 MCHC 31.5 L RDW 13.7 Plt Count 219 MPV 8.8 Sodium 140 Potassium 4.1 Chloride 108 H Carbon Dioxide 28 Anion Gap 4 L BUN 11 Creatinine 0.9 Creat Clearance w eGFR > 60 Random Glucose 83 Calcium 8.1 L Total Bilirubin 0.6 AST 44 H ALT 45 Alkaline Phosphatase 78 Total Protein 6.8 Albumin 3.2 L RPR Titer Nonreactive aaox3 ambulating no acute distress Assessment: 05/11/18 11:15 withdrawal sx Plan: continue detox increase fluids clonidine 0.1 bid with parameters
[2018-05-11] MEDS: cloNIDine HCL 0.1 MG TABLET PO SCH ×2 (13:21→22:07)
[2018-05-11] MEDS: THIAMINE HCL 100 MG TABLET (FP) PO SCH (22:07)
[2018-05-12] MEDS ORDERED: METHADONE HCL 5 MG TABLET (FOR DETOX USE ONLY) PO ONE (10:00)
[2018-05-12] MEDS: PRENATAL VITAMINS W/ FOLIC ACID TABLET (FP) PO SCH (10:12)
[2018-05-12] MEDS: cloNIDine HCL 0.1 MG TABLET PO SCH ×2 (10:12→22:43)
--- NOTE | 2018-05-12 11:28 | PN ---
[facility] Progress Note (SOAP) Subjective: interrupted sleep, sweats, Objective: 05/12/18 11:27 Vital Signs Temperature 97.5 F L 05/12/18 09:22 Pulse Rate 88 05/12/18 09:22 Respiratory Rate 18 05/12/18 09:22 Blood Pressure 142/80 05/12/18 09:22 O2 Sat by Pulse Oximetry (%) Laboratory Tests 05/10/18 05/10/18 05/10/18 07:30 07:30 07:30 WBC 4.4 RBC 4.70 Hgb 12.8 Hct 40.6 MCV 86.3 MCH 27.2 MCHC 31.5 L RDW 13.7 Plt Count 219 MPV 8.8 Sodium 140 Potassium 4.1 Chloride 108 H Carbon Dioxide 28 Anion Gap 4 L BUN 11 Creatinine 0.9 Creat Clearance w eGFR > 60 Random Glucose 83 Calcium 8.1 L Total Bilirubin 0.6 AST 44 H ALT 45 Alkaline Phosphatase 78 Total Protein 6.8 Albumin 3.2 L RPR Titer Nonreactive pt aox3 in nad ambulating Assessment: 05/12/18 11:27 withdrawal sx's Plan: cont. detox increase fluids
[2018-05-12] MEDS ORDERED: PERMETHRIN 5% TOPICAL CREAM 60 GM TUBE TP ONE (15:34)
--- NOTE | 2018-05-12 15:39 | PN ---
[facility] Progress Note Note: Pt c/o itchy head , feels like there is smomething in it . Pt with dread locks and head covering . Will treat for possibilty of head lice . Plan permethrin 5%
[2018-05-12] MEDS: THIAMINE HCL 100 MG TABLET (FP) PO SCH (22:43)
[2018-05-13 09:30] VITALS: BP 141/80; PULSE 91; TEMP 94.1
[2018-05-13] MEDS ORDERED: PERMETHRIN 5% TOPICAL CREAM 60 GM TUBE TP ONE (09:45)
[2018-05-13] MEDS ORDERED: METHADONE HCL 10 MG TABLET (FOR DETOX USE ONLY) PO ONE (10:00)
[2018-05-13] MEDS: cloNIDine HCL 0.1 MG TABLET PO SCH (10:22)
[2018-05-13] MEDS: PRENATAL VITAMINS W/ FOLIC ACID TABLET (FP) PO SCH (10:22)
--- NOTE | 2018-05-13 10:48 | DS ---
[facility] Detox Discharge Summary Admission Date: 05/09/18 Discharge Date: 05/13/18 - History Present History: Alcohol Dependence, Cocaine Dependence, Opioid Dependence - Physical Exam Results Vital Signs: Vital Signs Temperature 94.1 F L 05/13/18 09:29 Pulse Rate 91 H 05/13/18 09:29 Respiratory Rate 18 05/13/18 09:29 Blood Pressure 141/80 05/13/18 09:29 O2 Sat by Pulse Oximetry (%) - Treatment Hospital Course: Detox Protocol Followed, Detoxed Safely, Responded well, Discharged Condition Good, Rehab Referral Accepted - Medication Discharge Medications: Ambulatory Orders Emtricitabine/Tenofovir [Truvada] 1 tab PO DAILY #30 tab 01/30/17 - Diagnosis (1) Weight loss Current Visit: Yes Status: Acute (2) Cocaine dependence Current Visit: Yes Status: Chronic Qualifiers: Substance use status: uncomplicated Qualified Code(s): F14.20 - Cocaine dependence, uncomplicated (3) Opioid dependence with withdrawal Current Visit: Yes Status: Chronic (4) Nicotine dependence Current Visit: Yes Status: Chronic Qualifiers: Nicotine product type: cigarettes Substance use status: uncomplicated Qualified Code(s): F17.210 - Nicotine dependence, cigarettes, uncomplicated (5) Opioid dependence Current Visit: Yes Status: Chronic Qualifiers: Substance use status: uncomplicated Qualified Code(s): F11.20 - Opioid dependence, uncomplicated (6) Acneiform rash Current Visit: No Status: Chronic (7) Cocaine dependence, uncomplicated Current Visit: Yes Status: Chronic - AMA Did Patient Leave Against Medical Advice: No (going home)
--- NOTE | 2018-05-13 11:01 | PN ---
S Progress Note Note: pt was ordered another dose of emilte for further tx; however; pt refused to continue further tx pt d/c home order sent to local pharmacy for pt to continue tx
[2018-05-14] MEDS ORDERED: METHADONE HCL 5 MG TABLET (FOR DETOX USE ONLY) PO ONE (06:00)
== END 2018-05-13 10:49 | disposition home or self-care (01) | DRG 773 ==
LOC: YASAS 11:27 → Y6N 13:41
PROC: HZ2ZZZZ Detoxification Services for Substance Abuse Treatment (ICD-10-PCS; principal; 2018-05-09)
DX: F11.23 Opioid dependence with withdrawal (principal); F14.20 Cocaine dependence, uncomplicated; F10.10 Alcohol abuse, uncomplicated; F17.210 Nicotine dependence, cigarettes, uncomplicated; L27.0 Generalized skin eruption due to drugs and medicaments taken internally
CPT/HCPCS: 36415; 80053; 85027; 86593; J0735

== ENCOUNTER 2018-06-22 17:21 | Inpatient (IN) | payer OTHER ==
[2018-06-22 18:09] VITALS: BMI 23.0
--- NOTE | 2018-06-22 21:35 | HP ---
"COWS - Scale Resting Pulse: 0= [place] 80 or Below Sweatin=Flushed/Facial Moisture Restless Observation: 1= Difficult to Sit Still Pupil Size: 2= Moderately Dilated (Pupil;) Bone or Joint Aches: 0= None Runny Nose/ Eye Tearin= Runny Nose/Eyes GI Upset > 30mins: 1= Stomach Cramp Tremor Observation: 2= Slight Tremor Visible Yawning Observation: 1= 1-2x During Session Anxiety or Irritability: 1=Feels Anxious/Irritable Goose Flesh Skin: 0=Smooth Skin COWS Score: 12 CIWA Score - Admission Criteria OASAS Guidelines: Admission for Medically Managed Detox: Requires at least one of the followin. CIWA greater than 12 2. Seizures within the past 24 hours 3. Delirium tremens within the past 24 hours 4. Hallucinations within the past 24 hours 5. Acute intervention needed for co occurring medical disorder 6. Acute intervention needed for co occurring psychiatric disorder 7. Severe withdrawal that cannot be handled at a lower level of care (continued vomiting, continued diarrhea, abnormal vital signs) requiring intravenous medication and/or fluids 8. Admission ROS [facility] Chief Complaint: Heroin withdrawal. Allergies/Adverse Reactions: Allergies Allergy/AdvReac Type Severity Reaction Status Date / Time apple AdvReac Intermediate Rash Verified 06/22/18 22:37 History of Present Illness: Here for detox from heroin. Here for detox. Also wants to go to rehab. Heroin use began at age 36. IVDU. Gets needles from needle exchange. Does not share needles or works. Had tried a methadone program in 03/2018 but relapsed and stopped program. Cocaine use began at age 22. IVDU. Marijuana use began at age 16. Nicotine use began at age 16. Hx: Overdose - 02/07/18. Longest length of sobriety in the community is approx 6 months. (Stopped alcohol 1.5 years ago) Hx: Hep C, Cough x 1 month Patient takes Truvada, prn as PrEP. Hair shaved for lice 2 days ago - states not active now, but wants another treatment to be sure. States none in pubic hair. Mental Health: Slight depression. Denies thoughts of harming self or others. Search Terms: Ramon Hawkins, 1980 Search Date: 06/22/2018 09:21:24 PM The Drug Utilization Report below displays all of the controlled substance prescriptions, if any, that your patient has filled in the last twelve months. The information displayed on this report is compiled from pharmacy submissions to the Department, and accurately reflects the information as submitted by the pharmacies. This report was requested by: Ctoy Brownlee | Reference #: [id number] Others' Prescriptions Patient Name: Kyung Hawkins Date: 1980 Address: [address] [place] [address] Sex: Male Rx Written Rx Dispensed Drug Quantity Days Supply Prescriber Name 10/03/2017 10/03/2017 suboxone 8 mg-2 mg sl film 60 30 MelanieMoi wagoner MD 09/04/2017 09/04/2017 suboxone 8 mg-2 mg sl film 60 30 Moi Navarro MD 08/04/2017 08/05/2017 suboxone 8 mg-2 mg sl film 60 30 Moi Navarro MD 07/08/2017 07/08/2017 suboxone 8 mg-2 mg sl film 60 30 MelanieMoi wagoner MD Exam Limitations: No Limitations - Ebola screening Have you been sick,other than usual withdrawal symptoms: No - Review of Systems Constitutional: Diaphoresis EENT: reports: Nose Congestion Respiratory: reports: Cough (x 1 month. Denies SOB) Cardiac: reports: No Symptoms Reported GI: reports: No Symptoms Reported : reports: No Symptoms Reported Musculoskeletal: reports: No Symptoms Reported Integumentary: reports: Other (Tinea versicolor x 1 year) Neuro: reports: Tremors Endocrine: reports: No Symptoms Reported Hematology: reports: No Symptoms Reported Psychiatric: reports: Judgement Intact, Orientated x3, Agitated, Anxious, Depressed (States a little. Denies thoughts of harming self or others.) Patient History - Patient Medical History Hx Anemia: No Hx Asthma: No Hx Chronic Obstructive Pulmonary Disease (COPD): No Hx Cancer: No Hx Cardiac Disorders: No Hx Congestive Heart Failure: No Hx Hypertension: No Hx Hypercholesterolemia: No Hx Pacemaker: No HX Cerebrovascular Accident: No Hx Seizures: No Hx Dementia: No Hx Diabetes: No Hx Gastrointestinal Disorders: No Hx Liver Disease: No Hx Genitourinary Disorders: No Hx Sexually Transmitted Disorders: No Hx Renal Disease (ESRD): No Hx Thyroid Disease: No Hx Human Immunodeficiency Virus (HIV): No Hx Hepatitis C: Yes (treated) Hx Depression: No Hx Suicide Attempt: Yes (drug overdose) Hx Bipolar Disorder: No Hx Schizophrenia: No - Patient Surgical History Past Surgical History: Yes Hx Neurologic Surgery: No Hx Cataract Extraction: No Hx Cardiac Surgery: No Hx Lung Surgery: No Hx Breast Surgery: No Hx Breast Biopsy: No Hx Abdominal Surgery: No Hx Appendectomy: No Hx Cholecystectomy: No Hx Genitourinary Surgery: No Hx Orthopedic Surgery: Yes (2008 RIGHT KNEE ) Anesthesia Reaction: No - PPD History Previous Implant?: Yes Implanted On Prior [facility] Admission?: Yes Date: 05/11/18 PPD to be Administered?: No - Smoking Cessation Smoking history: Current every day smoker Have you smoked in the past 12 months: Yes Aproximately how many cigarettes per day: 4 Hx Chewing Tobacco Use: No Initiated information on smoking cessation: Yes 'Breaking Loose' booklet given: 06/22/18 - Substance & Tx. History Hx Alcohol Use: Yes Hx Substance Use: Yes Substance Use Type: Cocaine, Heroin, Marijuana, Opiates Hx Substance Use Treatment: Yes (detox, rehab, Past - MAT) - Substances Abused Heroin Route: Injection Frequency: Daily Amount used: 5 bags Age of first use: 37 Date of Last Use: 06/22/18 Cocaine Route: Injection Frequency: Daily Amount used: $100 Age of first use: 22 Date of Last Use: 06/22/18 Marijuana/Hashish Route: Smoking Frequency: Daily Amount used: $10 Age of first use: 16 Date of Last Use: 06/21/18 Family Disease History - Family Disease History Family Disease History: Heart Disease: Mother (htn, living), Other: Father ( living), Mother, Brother (one, living, healthy), Daughter (age 3, healthy) Admission Physical Exam S - Vital Signs Vital Signs: Vital Signs - 24 hr 06/22/18 18:08 Temperature 97.1 F L Pulse Rate 76 Respiratory 18 Rate Blood Pressure 150/73 - Physical General Appearance: Yes: Mild Distress, Tremorous, Sweating (Facial mositure) HEENTM: Yes: EOMI, Hearing grossly Normal, Normal Voice, CHRISTOPHER (Pupils = 5 mm), Pharynx Normal Respiratory: Yes: Chest Non-Tender, Lungs Clear, Normal Breath Sounds, Other ( Cough productive of thick, greenish phlegm.) Neck: Yes: No masses,lesions,Nodules, Supple Breast: Yes: Breast Exam Deferred Cardiology: Yes: Regular Rhythm, Regular Rate, S1, S2 Abdominal: Yes: Non Tender, Flat, Soft, Increased Bowel Sounds Genitourinary: Yes: Within Normal Limits (No infestation noted in pubic hairs) Back: Yes: Normal Inspection Musculoskeletal: Yes: full range of Motion, Gait Steady Extremities: Yes: Normal Capillary Refill, Normal Inspection, Normal Range of Motion, Tremors Neurological: Yes: tuberculosis specialist II-XII NML intact, Fully Oriented, Alert, Motor Strength 5/5, Normal Mood/Affect Integumentary: Yes: Normal Color, Warm, Rash, Track Wilkes (Old and new track wilkes on both arms. No increased erythema or warmth.), Other (Multiple small light and dark colored non-elevated patches, predominantly on chest.) Lymphatic: Yes: Within Normal Limits - Diagnostic (1) Cannabis dependence, uncomplicated Current Visit: Yes Status: Chronic (2) Tinea versicolor Current Visit: Yes Status: Chronic (3) Onychomycosis Current Visit: Yes Status: Chronic Comment: Toe nails (4) Exposure to pediculosis capitis Current Visit: Yes Status: Chronic Comment: Head treated and shaved (5) Cocaine dependence, uncomplicated Current Visit: Yes Status: Chronic (6) Nicotine dependence Current Visit: Yes Status: Chronic Qualifiers: Nicotine product type: cigarettes Substance use status: uncomplicated Qualified Code(s): F17.210 - Nicotine dependence, cigarettes, uncomplicated (7) Opioid dependence with withdrawal Current Visit: Yes Status: Acute (8) Cough Current Visit: Yes Status: Acute Cleared for Admission [facility] - Detox or Rehab [facility] Level of Care: Medically Managed Detox Regimen/Protocol: Methadone [facility] Breath Alcohol Content Breath Alcohol Content: 0.007 Urine Drug Screen - Results Drug Screen Negative: No Urine Drug Screen Results: THC-Marijuana, ERVIN-Cocaine, OPI-Opiates, FEN-Fentanyl"
[2018-06-22] MEDS ORDERED: MENTHOL/PHENOL 1 EACH UD MM PRN (22:09)
[2018-06-22] MEDS ORDERED: LOPERAMIDE HCL 2 MG CAPSULE PO PRN (22:09)
[2018-06-22] MEDS ORDERED: MAG HYDROX/AL HYDROX/SIMETH 30 ML UNIT-DOSE CUP PO PRN (22:09)
[2018-06-22] MEDS ORDERED: METHADONE HCL 10 MG TABLET (FOR DETOX USE ONLY) PO ONE ×2 (22:09→23:00)
[2018-06-22] MEDS ORDERED: NICOTINE POLACRILEX 2 MG GUM BC PRN (22:09)
[2018-06-22] MEDS ORDERED: MAGNESIUM CITRATE 300 ML BOTTLE PO PRN (22:09)
[2018-06-22] MEDS ORDERED: P-EPHED 60MG/TRIPROLIDI 2.5MG TABLET PO PRN (22:09)
[2018-06-22] MEDS ORDERED: IBUPROFEN 400 MG TABLET (FP) PO PRN (22:09)
[2018-06-22] MEDS ORDERED: MAGNESIUM HYDROX 2400MG/30ML ORAL SUSPENSION 30 ML CUP PO PRN (22:09)
[2018-06-22] MEDS ORDERED: ACETAMINOPHEN 325 MG TABLET (FP) PO PRN (22:09)
[2018-06-22] MEDS ORDERED: PERMETHRIN 5% TOPICAL CREAM 60 GM TUBE TP ONE (22:12)
[2018-06-22] MEDS ORDERED: guaiFENesin 200 MG/10 ML 10 ML UNIT-DOSE CUPS PO ONE (22:14)
[2018-06-22] MEDS: diazePAM 5 MG TABLET PO PRN (23:33)
[2018-06-22] MEDS: SULFAMETHOXAZOLE/TRIMETHOPRIM 800MG/160MG D.S. TABLET PO SCH (23:33)
[2018-06-23 02:21] LABS: URINE APPEARANCE CLEAR; URINE BILIRUBIN NEGATIVE (<2.0 mg/dL); URINE COLOR YELLOW; URINE GLUCOSE (UA) NEGATIVE (NEGATIVE); URINE KETONE NEGATIVE (NEGATIVE); URINE LEUK ESTERASE NEGATIVE (NEGATIVE); URINE NITRITE NEGATIVE (NEGATIVE); URINE PROTEIN NEGATIVE (NEGATIVE); URINE UROBILINOGEN 4.0 E.U/dl mg/dL (0.2-1.0)
--- NOTE | 2018-06-23 09:52 | PN ---
BHS COWS - Scale Resting Pulse: 0= [place] 80 or Below Sweatin=Flushed/Facial Moisture Restless Observation: 1= Difficult to Sit Still Pupil Size: 0= Normal to Room Light Bone or Joint Aches: 2= Severe Diffuse Aches Runny Nose/ Eye Tearin= Nasal Congestion GI Upset > 30mins: 0= None Tremor Observation of Outstretched Hands: 2= Slight Tremor Visible Yawning Observation: 2= >3x During Session Anxiety or Irritability: 2=Irritable/Anxious Goose Flesh Skin: 0=Smooth Skin COWS Score: 12 BHS Progress Note (SOAP) Subjective: sweats interrupted sleep body aches irritable restless Objective: 06/23/18 09:51 Vital Signs Temperature 98.2 F 06/23/18 09:21 Pulse Rate 77 06/23/18 09:21 Respiratory Rate 18 06/23/18 09:21 Blood Pressure 145/78 06/23/18 09:21 O2 Sat by Pulse Oximetry (%) Laboratory Tests 06/22/18 22:50 Urine Color Yellow Urine Appearance Clear Urine pH 6.0 Ur Specific [place] 1.028 Urine Protein Negative Urine Glucose (UA) Negative Urine Ketones Negative Urine Blood Negative Urine Nitrite Negative Urine Bilirubin Negative Urine Urobilinogen 4.0 e.u/dl Ur Leukocyte Esterase Negative rest of labs pending aaox3 ambulating no acute distress Assessment: 06/23/18 09:52 withdrawal sx Plan: continue detox increase fluids labs pending
[2018-06-23] MEDS ORDERED: PERMETHRIN 5% TOPICAL CREAM 60 GM TUBE TP ONE (10:00)
[2018-06-23] MEDS ORDERED: METHADONE HCL 10 MG TABLET (FOR DETOX USE ONLY) PO ONE (10:00)
[2018-06-23] MEDS: SULFAMETHOXAZOLE/TRIMETHOPRIM 800MG/160MG D.S. TABLET PO SCH ×2 (10:22→22:27)
[2018-06-23] MEDS: PRENATAL VITAMINS W/ FOLIC ACID TABLET (FP) PO SCH (10:22)
[2018-06-23 10:32] LABS: HEMATOCRIT 36.3 % (35.4-49); MCH 28.2 pg (25.7-33.7); MCHC 32.9 g/dl (32.0-35.9); MEAN CELL VOLUME 85.7 fl (80-96); MEAN PLT VOLUME 8.6 fl (7.5-11.1); PLATELET COUNT 218 K/MM3 (134-434); RBC 4.24 M/mm3 (4.00-5.60); RDW 14.3 % (11.9-15.9); WHITE BLOOD COUNT 5.3 K/mm3 (4.0-10.0)
[2018-06-23 10:59] LABS: ALBUMIN 2.9 g/dl (3.4-5.0); ALK PHOS 71 U/L (45-117); ANION GAP 8 MMOL/L (8-16); BILIRUBIN,TOTAL 0.4 mg/dL (0.2-1); BLOOD UREA NITROGEN 15 mg/dL (7-18); CALCIUM 8.3 mg/dL (8.5-10.1); CHLORIDE 108 mmol/L (98-107); CO2 26 mmol/L (21-32); CREATININE 0.9 mg/dL (0.55-1.3); GLUCOSE,RANDOM 92 mg/dL (74-106); SGOT/AST 26 U/L (15-37); SGPT/ALT 31 U/L (13-61); SODIUM 142 mmol/L (136-145); TOT PROT 6.4 g/dl (6.4-8.2)
--- NOTE | 2018-06-23 15:10 | EKG ---
Test Reason : Blood Pressure : / mmHG Vent. Rate : 072 BPM Atrial Rate : 072 BPM P-R Int : 150 ms QRS Dur : 084 ms QT Int : 370 ms P-R-T Axes : 060 026 020 degrees QTc Int : 405 ms NORMAL SINUS RHYTHM NORMAL ECG WHEN COMPARED WITH ECG OF 22-JAN-2017 22:02, NONSPECIFIC T WAVE ABNORMALITY NOW EVIDENT IN INFERIOR LEADS Confirmed by Mckinley Pete MD ([id number]) on 06/23/2018 3:10:19 PM Referred By: Confirmed By:Mckinley Pete MD
[2018-06-23] MEDS: CLOTRIMAZOLE 1% CREAM 15 GM TUBE TP SCH ×2 (15:25→22:29)
[2018-06-23] MEDS: THIAMINE HCL 100 MG TABLET (FP) PO SCH (22:27)
[2018-06-23] MEDS: MELATONIN 5 MG TABLETS PO PRN (22:28)
[2018-06-24] MEDS ORDERED: METHADONE HCL 5 MG TABLET (FOR DETOX USE ONLY) PO ONE (10:00)
--- NOTE | 2018-06-24 10:11 | PN ---
BHS COWS - Scale Resting Pulse: 0= [place] 80 or Below Sweatin=Flushed/Facial Moisture Restless Observation: 0= Sits Still Pupil Size: 0= Normal to Room Light Bone or Joint Aches: 1= Mild Discomfort Runny Nose/ Eye Tearin= None GI Upset > 30mins: 0= None Tremor Observation of Outstretched Hands: 2= Slight Tremor Visible Yawning Observation: 2= >3x During Session Anxiety or Irritability: 2=Irritable/Anxious Goose Flesh Skin: 0=Smooth Skin COWS Score: 9 BHS Progress Note (SOAP) Subjective: agitation sweats interrupted sleep body aches Objective: 06/24/18 10:10 Vital Signs Temperature 98.1 F 06/24/18 09:36 Pulse Rate 72 06/24/18 09:36 Respiratory Rate 20 06/24/18 09:36 Blood Pressure 136/71 06/24/18 09:36 O2 Sat by Pulse Oximetry (%) Laboratory Tests 06/22/18 06/23/18 06/23/18 22:50 07:00 07:00 WBC 5.3 RBC 4.24 Hgb 12.0 Hct 36.3 MCV 85.7 MCH 28.2 MCHC 32.9 RDW 14.3 Plt Count 218 MPV 8.6 Sodium 142 Potassium 4.0 Chloride 108 H Carbon Dioxide 26 Anion Gap 8 BUN 15 Creatinine 0.9 Creat Clearance w eGFR > 60 Random Glucose 92 Calcium 8.3 L Total Bilirubin 0.4 AST 26 ALT 31 Alkaline Phosphatase 71 Total Protein 6.4 Albumin 2.9 L Urine Color Yellow Urine Appearance Clear Urine pH 6.0 Ur Specific [place] 1.028 Urine Protein Negative Urine Glucose (UA) Negative Urine Ketones Negative Urine Blood Negative Urine Nitrite Negative Urine Bilirubin Negative Urine Urobilinogen 4.0 e.u/dl Ur Leukocyte Esterase Negative HIV 1&2 Antibody Screen HIV P24 Antigen 06/23/18 07:00 WBC RBC Hgb Hct MCV MCH MCHC RDW Plt Count MPV Sodium Potassium Chloride Carbon Dioxide Anion Gap BUN Creatinine Creat Clearance w eGFR Random Glucose Calcium Total Bilirubin AST ALT Alkaline Phosphatase Total Protein Albumin Urine Color Urine Appearance Urine pH Ur Specific [place] Urine Protein Urine Glucose (UA) Urine Ketones Urine Blood Urine Nitrite Urine Bilirubin Urine Urobilinogen Ur Leukocyte Esterase HIV 1&2 Antibody Screen Negative HIV P24 Antigen Negative aaox3 ambulating no acute distress Assessment: 06/24/18 10:10 withdrawal sx Plan: continue detox increase fluids
[2018-06-24] MEDS: CLOTRIMAZOLE 1% CREAM 15 GM TUBE TP SCH ×2 (11:13→23:28)
[2018-06-24] MEDS: SULFAMETHOXAZOLE/TRIMETHOPRIM 800MG/160MG D.S. TABLET PO SCH ×2 (11:15→23:28)
[2018-06-24] MEDS: PRENATAL VITAMINS W/ FOLIC ACID TABLET (FP) PO SCH (11:15)
[2018-06-24] MEDS ORDERED: valACYclovir HCL 500 MG TABLET (FP) PO ONE (15:43)
--- NOTE | 2018-06-24 15:45 | PN ---
BHS Progress Note Note: pt c/o of active genital herpes penial area assessed along with RN on duty and active herpes noted on head of penis valtrex 1000mg bid ordered will f/u
[2018-06-24] MEDS: valACYclovir HCL 500 MG TABLET (FP) PO SCH (23:28)
[2018-06-24] MEDS: THIAMINE HCL 100 MG TABLET (FP) PO SCH (23:28)
[2018-06-25] MEDS: MELATONIN 5 MG TABLETS PO PRN ×2 (01:48→22:13)
[2018-06-25] MEDS ORDERED: METHADONE HCL 5 MG TABLET (FOR DETOX USE ONLY) PO ONE (10:00)
--- NOTE | 2018-06-25 10:25 | PN ---
BHS Progress Note (SOAP) Subjective: agitation sweats interrupted sleep Objective: 06/25/18 10:31 Vital Signs Temperature 97.5 F L 06/25/18 10:20 Pulse Rate 67 06/25/18 10:20 Respiratory Rate 18 06/25/18 10:20 Blood Pressure 122/78 06/25/18 10:20 O2 Sat by Pulse Oximetry (%) aaox3 ambulating no acute distress Assessment: 06/25/18 10:33 withdrawal sx Plan: continue detox increase fluids
[2018-06-25] MEDS: SULFAMETHOXAZOLE/TRIMETHOPRIM 800MG/160MG D.S. TABLET PO SCH ×2 (10:53→22:12)
[2018-06-25] MEDS: CLOTRIMAZOLE 1% CREAM 15 GM TUBE TP SCH ×2 (10:54→22:12)
[2018-06-25] MEDS: valACYclovir HCL 500 MG TABLET (FP) PO SCH ×2 (10:54→22:12)
[2018-06-25] MEDS: diazePAM 5 MG TABLET PO PRN (10:54)
[2018-06-25] MEDS: PRENATAL VITAMINS W/ FOLIC ACID TABLET (FP) PO SCH (10:54)
[2018-06-25] MEDS: THIAMINE HCL 100 MG TABLET (FP) PO SCH (22:12)
[2018-06-26 09:22] VITALS: BP 149/93; PULSE 95; TEMP 98.5
[2018-06-26] MEDS: PRENATAL VITAMINS W/ FOLIC ACID TABLET (FP) PO SCH (09:33)
[2018-06-26] MEDS: SULFAMETHOXAZOLE/TRIMETHOPRIM 800MG/160MG D.S. TABLET PO SCH (09:33)
[2018-06-26] MEDS: valACYclovir HCL 500 MG TABLET (FP) PO SCH (09:33)
[2018-06-26] MEDS: CLOTRIMAZOLE 1% CREAM 15 GM TUBE TP SCH (09:34)
--- NOTE | 2018-06-26 09:43 | PN ---
BHS Progress Note Note: pt is feeling so much better; no s/s of withdrawals noted. rx sent to pharmacy. d/c today.
--- NOTE | 2018-06-26 09:44 | DS ---
[facility] Detox Discharge Summary Admission Date: 06/22/18 Discharge Date: 06/26/18 - History Present History: Cannabis Dependence, Cocaine Dependence, Opioid Dependence - Physical Exam Results Vital Signs: Vital Signs Temperature 98.5 F 06/26/18 09:21 Pulse Rate 95 H 06/26/18 09:21 Respiratory Rate 18 06/26/18 09:21 Blood Pressure 149/93 06/26/18 09:21 O2 Sat by Pulse Oximetry (%) - Treatment Hospital Course: Detox Protocol Followed, Detoxed Safely, Responded well, Discharged Condition Good, Rehab Referral Accepted - Medication Discharge Medications: Ambulatory Orders Clotrimazole [Lotrimin -] 1 applic TP BID #1 tube 06/26/18 Sulfamethoxazole/Trimethoprim [Bactrim DS -] 1 each PO BID #12 tablet 06/26/18 Valacyclovir HCl [Valtrex -] 1,000 mg PO BID #60 tablet 06/26/18 - AMA Did Patient Leave Against Medical Advice: No (going home)
[2018-06-26] MEDS ORDERED: METHADONE HCL 10 MG TABLET (FOR DETOX USE ONLY) PO ONE (10:00)
[2018-06-27] MEDS ORDERED: METHADONE HCL 5 MG TABLET (FOR DETOX USE ONLY) PO ONE (06:00)
== END 2018-06-26 09:39 | disposition home or self-care (01) | DRG 773 ==
LOC: YASAS 17:21 → Y6N 22:31
PROVIDERS: ADMIT Surgery; ATTEND Surgery
PROC: HZ2ZZZZ Detoxification Services for Substance Abuse Treatment (ICD-10-PCS; principal; 2018-06-22)
DX: F11.23 Opioid dependence with withdrawal (principal); F14.20 Cocaine dependence, uncomplicated; F12.20 Cannabis dependence, uncomplicated; F17.210 Nicotine dependence, cigarettes, uncomplicated; A60.00 Herpesviral infection of urogenital system, unspecified; B36.0 Pityriasis versicolor; B35.1 Tinea unguium; R05 Cough; Z20.7 Contact with and (suspected) exposure to pediculosis, acariasis and other infestations
CPT/HCPCS: 36415; 80053; 81003; 85027; 86593; 87389; 93005; 93010

== ENCOUNTER 2018-10-13 14:08 | Inpatient (IN) | payer OTHER ==
[2018-10-13 17:48] VITALS: BMI 23.6
--- NOTE | 2018-10-13 18:35 | HP ---
COWS - Scale Resting Pulse: 0= [place] 80 or Below Sweatin= Chills/Flushing Restless Observation: 1= Difficult to Sit Still Pupil Size: 0= Normal to Room Light Bone or Joint Aches: 1= Mild Discomfort Runny Nose/ Eye Tearin= Runny Nose/Eyes GI Upset > 30mins: 2= Nausea/Diarrhea Tremor Observation: 2= Slight Tremor Visible Yawning Observation: 1= 1-2x During Session Anxiety or Irritability: 2=Irritable/Anxious Goose Flesh Skin: 0=Smooth Skin COWS Score: 12 CIWA Score Nausea/Vomitin-No Nausea/No Vomiting Muscle Tremors: 4-Moderate,w/Arms Extend Anxiety: 1-Mildly Anxious Agitation: 1-Slight > Activity Paroxysmal Sweats: No Perspiration Orientation: 0-Oriented Tacttile Disturbances: 0-None Auditory Disturbances: 0-None Visual Disturbances: 0-None - Admission Criteria OASAS Guidelines: Admission for Medically Managed Detox: Requires at least one of the followin. CIWA greater than 12 2. Seizures within the past 24 hours 3. Delirium tremens within the past 24 hours 4. Hallucinations within the past 24 hours 5. Acute intervention needed for co occurring medical disorder 6. Acute intervention needed for co occurring psychiatric disorder 7. Severe withdrawal that cannot be handled at a lower level of care (continued vomiting, continued diarrhea, abnormal vital signs) requiring intravenous medication and/or fluids 8. Admission ROS [facility] Allergies/Adverse Reactions: Allergies Allergy/AdvReac Type Severity Reaction Status Date / Time apple AdvReac Intermediate Rash Verified 06/22/18 22:37 History of Present Illness: pt here requesting detox from heroin use , reports 1 bag today 1 pm , average daily use 15 bags IVDU since 2 years ago , longest sobriety x 6 months , prior detox at this facility Jun 2018, needles from needle exchange , denies sharing , denies re-using , IVDU in sun UE , denies abscess , OD x 1 Narcan by police in 2018 ; methadone program in 03/2018, MDD 50 mg , voluntarily stopped going to the program " I quit ". Pt is a very poor historian 2/2 intoxication, falls asleep frequently during interview, with great difficulty awakening . Cocaine since age 22 IVDU 100 $/day . cannabis since age 16. tobacco use : 15 cigs/day since age 16. etoh : every other day , denies seizures , reports tremors if not drinking , states 1.5 pints daily , latest use today . PMHX /unable to obtain 2/2 patient condition ( intoxication ) Exam Limitations: Clinical Condition, Intoxication - Ebola screening Have you traveled outside of the country in the last 21 days: No (N) Have you had contact with anyone from an Ebola affected area: No Do you have a fever: No - Review of Systems Constitutional: See HPI EENT: reports: See HPI Respiratory: reports: No Symptoms reported Cardiac: reports: No Symptoms Reported GI: reports: See HPI : reports: No Symptoms Reported Musculoskeletal: reports: No Symptoms Reported Integumentary: reports: See HPI Neuro: reports: See HPI, Unsteady Gait Endocrine: reports: No Symptoms Reported Psychiatric: reports: other (drowsy , intoxicated) Patient History - Patient Medical History Hx Anemia: No Hx Asthma: No Hx Chronic Obstructive Pulmonary Disease (COPD): No Hx Cancer: No Hx Cardiac Disorders: No Hx Congestive Heart Failure: No Hx Hypertension: No Hx Hypercholesterolemia: No Hx Pacemaker: No HX Cerebrovascular Accident: No Hx Seizures: No Hx Dementia: No Hx Diabetes: No Hx Gastrointestinal Disorders: No Hx Liver Disease: No Hx Genitourinary Disorders: No Hx Sexually Transmitted Disorders: No Hx Renal Disease (ESRD): No Hx Thyroid Disease: No Hx Human Immunodeficiency Virus (HIV): No Hx Hepatitis C: Yes (treated) Hx Depression: No Hx Suicide Attempt: Yes (drug overdose) Hx Bipolar Disorder: No Hx Schizophrenia: No - Patient Surgical History Past Surgical History: Yes Hx Neurologic Surgery: No Hx Cataract Extraction: No Hx Cardiac Surgery: No Hx Lung Surgery: No Hx Breast Surgery: No Hx Breast Biopsy: No Hx Abdominal Surgery: No Hx Appendectomy: No Hx Cholecystectomy: No Hx Genitourinary Surgery: No Hx Orthopedic Surgery: Yes (2008 RIGHT KNEE ) Anesthesia Reaction: No - PPD History Date: 05/11/18 - Smoking Cessation Smoking history: Current every day smoker Have you smoked in the past 12 months: Yes Aproximately how many cigarettes per day: 4 Hx Chewing Tobacco Use: No Initiated information on smoking cessation: No - Substances abused Heroin Substance route: Injection Amount used: 3 bags/day Age of first use: 36 Date of last use: 10/13/18 Alcohol Substance route: Oral Frequency: Daily Amount used: 1 pint vodka Age of first use: 14 Date of last use: 10/12/18 Family Disease History - Family Disease History Family Disease History: Heart Disease: Mother (htn, living), Other: Father ( living), Mother, Brother (one, living, healthy), Daughter (age 3, healthy) Admission Physical Exam S - Vital Signs Vital Signs: Vital Signs - 24 hr 10/13/18 17:41 Temperature 98.2 F Pulse Rate 70 Respiratory 19 Rate Blood Pressure 135/91 - Physical General Appearance: Yes: Mild Distress, Intoxicated HEENTM: Yes: EOMI, Hearing grossly Normal, Normocephalic, Normal Voice, Other ( pupils small for light) Respiratory: Yes: Chest Non-Tender, Lungs Clear, Normal Breath Sounds Neck: Yes: No masses,lesions,Nodules, Trachea in good position Cardiology: Yes: Regular Rhythm, Regular Rate, S1, S2 Abdominal: Yes: Non Tender, Soft Back: Yes: Normal Inspection Extremities: Yes: Non-Tender, Tremors Neurological: Yes: Motor Strength 5/5, Confused, Other (drowsy , intoxicated) Integumentary: Yes: Track Wilkes ( bile UE ante cubital, indurated , no erythema , no discharge , no tenderness) - Diagnostic (1) Cannabis dependence, uncomplicated Current Visit: Yes Status: Chronic (2) Cocaine dependence Current Visit: Yes Status: Chronic Qualifiers: Substance use status: uncomplicated Qualified Code(s): F14.20 - Cocaine dependence, uncomplicated (3) Opioid dependence Current Visit: Yes Status: Chronic Qualifiers: Substance use status: with intoxication Complication of substance-induced condition: with perceptual disturbance Qualified Code(s): F11.222 - Opioid dependence with intoxication with perceptual disturbance (4) Alcohol abuse Current Visit: Yes Status: Acute Breathalyzer - Breathalyzer Breathalyzer: 0.008 Urine Drug Screen - Test Device Lot number: [id number] Expiration date: 09/16/19 - Control Is test valid?: Yes - Results Drug screen NEGATIVE: No Urine drug screen results: THC-Marijuana, ERVIN-Cocaine, MOP-Opiates Inpatient Rehab Admission - Rehab Decision to Admit Inpatient rehab admission?: No
[2018-10-13] MEDS ORDERED: hydrOXYzine PAMOATE 25 MG CAPSULE (FP) PO PRN (18:58)
[2018-10-13] MEDS ORDERED: MELATONIN 5 MG TABLETS PO PRN (18:58)
[2018-10-13] MEDS ORDERED: MAGNESIUM CITRATE 300 ML BOTTLE PO PRN (18:58)
[2018-10-13] MEDS ORDERED: METHOCARBAMOL 500 MG TABLET PO PRN (18:58)
[2018-10-13] MEDS ORDERED: MAGNESIUM HYDROX 2400MG/30ML ORAL SUSPENSION 30 ML CUP PO PRN (18:58)
[2018-10-13] MEDS ORDERED: IBUPROFEN 400 MG TABLET (FP) PO PRN (18:58)
[2018-10-13] MEDS ORDERED: NICOTINE POLACRILEX 2 MG GUM BUC PRN (18:58)
[2018-10-13] MEDS ORDERED: MENTHOL/PHENOL 1 EACH UD MM PRN (18:58)
[2018-10-13] MEDS ORDERED: MAG HYDROX/AL HYDROX/SIMETH 30 ML UNIT-DOSE CUP PO PRN (18:58)
[2018-10-13] MEDS ORDERED: chlordiazePOXIDE HCL 10 MG CAPSULE PO PRN (18:58)
[2018-10-13] MEDS ORDERED: BISMUTH SUBSALICYLATE 524 MG/30 ML UD PO PRN (18:58)
[2018-10-13] MEDS ORDERED: ACETAMINOPHEN 325 MG TABLET (FP) PO PRN ×2 (18:58)
[2018-10-13] MEDS: chlordiazePOXIDE HCL 25 MG CAPSULE PO SCH (22:22)
[2018-10-13] MEDS: THIAMINE HCL 100 MG TABLET (FP) PO SCH (22:23)
[2018-10-13] MEDS ORDERED: METHADONE HCL 10 MG TABLET (FOR DETOX USE ONLY) PO ONE (23:00)
[2018-10-14] MEDS: chlordiazePOXIDE HCL 25 MG CAPSULE PO SCH ×2 (06:29→14:16)
[2018-10-14] MEDS ORDERED: METHADONE HCL 10 MG TABLET (FOR DETOX USE ONLY) PO ONE (10:00)
[2018-10-14 10:08] LABS: HEMATOCRIT 40.8 % (35.4-49); HEMOGLOBIN 13.1 GM/dL (11.7-16.9); MCH 27.6 pg (25.7-33.7); MCHC 32.2 g/dl (32.0-35.9); MEAN CELL VOLUME 85.8 fl (80-96); PLATELET COUNT 307 K/MM3 (134-434); RBC 4.76 M/mm3 (4.00-5.60); RDW 13.7 % (11.9-15.9); WHITE BLOOD COUNT 5.5 K/mm3 (4.0-10.0)
[2018-10-14 10:13] LABS: ALBUMIN 3.1 g/dl (3.4-5.0); BILIRUBIN,TOTAL 0.4 mg/dL (0.2-1); CALCIUM 8.8 mg/dL (8.5-10.1); CREATININE 0.9 mg/dL (0.55-1.3)
[2018-10-14] MEDS: PRENATAL VITAMINS W/ FOLIC ACID TABLET (FP) PO SCH (11:02)
--- NOTE | 2018-10-14 11:37 | PN ---
[facility] CIWA - CIWA Score Nausea/Vomitin-Mild Nausea/No Vomiting Muscle Tremors: 3 Anxiety: 2 Agitation: 2 Paroxysmal Sweats: 1-Minimal Palms Moist Orientation: 1-Uncertain about Date Tacttile Disturbances: 0-None Auditory Disturbances: 0-None Visual Disturbances: 0-None Headache: 1-Very Mild CIWA-Ar Total Score: 11 S COWS - Scale Resting Pulse: 0= [place] 80 or Below Sweatin= Chills/Flushing Restless Observation: 0= Sits Still Pupil Size: 0= Normal to Room Light Bone or Joint Aches: 1= Mild Discomfort Runny Nose/ Eye Tearin= Nasal Congestion GI Upset > 30mins: 1= Stomach Cramp Tremor Observation of Outstretched Hands: 1= Tremor [place], Not Seen Yawning Observation: 2= >3x During Session Anxiety or Irritability: 1=Feels Anxious/Irritable Goose Flesh Skin: 0=Smooth Skin COWS Score: 8 [facility] Progress Note (SOAP) Subjective: feeling ok today doing well with librium and methadone detox regimen Objective: 10/14/18 11:37 Vital Signs Temperature 96.1 F L 10/14/18 09:17 Pulse Rate 78 10/14/18 09:17 Respiratory Rate 18 10/14/18 09:17 Blood Pressure 158/96 10/14/18 09:17 O2 Sat by Pulse Oximetry (%) Laboratory Last Values WBC 5.5 K/mm3 (4.0-10.0) 10/14/18 07:00 RBC 4.76 M/mm3 (4.00-5.60) 10/14/18 07:00 Hgb 13.1 GM/dL (11.7-16.9) 10/14/18 07:00 Hct 40.8 % (35.4-49) 10/14/18 07:00 MCV 85.8 fl (80-96) 10/14/18 07:00 MCH 27.6 pg (25.7-33.7) 10/14/18 07:00 MCHC 32.2 g/dl (32.0-35.9) 10/14/18 07:00 RDW 13.7 % (11.9-15.9) 10/14/18 07:00 Plt Count 307 K/MM3 (134-434) D 10/14/18 07:00 MPV 9.0 fl (7.5-11.1) 10/14/18 07:00 Sodium 139 mmol/L (136-145) 10/14/18 07:00 Potassium 4.0 mmol/L (3.5-5.1) 10/14/18 07:00 Chloride 103 mmol/L (98-107) 10/14/18 07:00 Carbon Dioxide 28 mmol/L (21-32) 10/14/18 07:00 Anion Gap 8 MMOL/L (8-16) 10/14/18 07:00 BUN 12 mg/dL (7-18) 10/14/18 07:00 Creatinine 0.9 mg/dL (0.55-1.3) 10/14/18 07:00 Est GFR (CKD-EPI)AfAm 126.02 10/14/18 07:00 Est GFR (CKD-EPI)NonAf 108.73 10/14/18 07:00 Random Glucose 106 mg/dL (74-106) 10/14/18 07:00 Calcium 8.8 mg/dL (8.5-10.1) 10/14/18 07:00 Total Bilirubin 0.4 mg/dL (0.2-1) 10/14/18 07:00 AST 32 U/L (15-37) 10/14/18 07:00 ALT 43 U/L (13-61) 10/14/18 07:00 Alkaline Phosphatase 83 U/L (45-117) 10/14/18 07:00 Total Protein 7.0 g/dl (6.4-8.2) 10/14/18 07:00 Albumin 3.1 g/dl (3.4-5.0) L 10/14/18 07:00 lab noted 10/14/18 11:40 clonidin 0.1 mg prn Assessment: 10/14/18 11:40 alcohol and opiate withdrawal sx Plan: continue detox
[2018-10-14] MEDS ORDERED: cloNIDine HCL 0.1 MG TABLET PO PRN (11:39)
[2018-10-14] MEDS: EMTRICITABINE 200MG/TENOFOVIR 300MG PO SCH (14:15)
[2018-10-14] MEDS: THIAMINE HCL 100 MG TABLET (FP) PO SCH (22:57)
[2018-10-14] MEDS: chlordiazePOXIDE 5 MG CAPSULE PO SCH (22:58)
[2018-10-15] MEDS: chlordiazePOXIDE 5 MG CAPSULE PO SCH ×2 (06:12→13:59)
[2018-10-15] MEDS: PRENATAL VITAMINS W/ FOLIC ACID TABLET (FP) PO SCH (09:34)
[2018-10-15] MEDS: EMTRICITABINE 200MG/TENOFOVIR 300MG PO SCH (09:35)
[2018-10-15] MEDS ORDERED: METHADONE HCL 10 MG TABLET (FOR DETOX USE ONLY) PO ONE (10:00)
--- NOTE | 2018-10-15 12:51 | PN ---
[facility] CIWA - CIWA Score Nausea/Vomitin-Mild Nausea/No Vomiting Muscle Tremors: 2 Anxiety: 3 Agitation: 2 Paroxysmal Sweats: 1-Minimal Palms Moist Orientation: 1-Uncertain about Date Tacttile Disturbances: 0-None Auditory Disturbances: 0-None Visual Disturbances: 0-None Headache: 0-None Present CIWA-Ar Total Score: 10 BHS COWS - Scale Resting Pulse: 0= [place] 80 or Below Sweatin= Chills/Flushing Restless Observation: 1= Difficult to Sit Still Pupil Size: 0= Normal to Room Light Bone or Joint Aches: 1= Mild Discomfort Runny Nose/ Eye Tearin= Nasal Congestion GI Upset > 30mins: 1= Stomach Cramp Tremor Observation of Outstretched Hands: 1= Tremor [place], Not Seen Yawning Observation: 0= None Anxiety or Irritability: 1=Feels Anxious/Irritable Goose Flesh Skin: 0=Smooth Skin COWS Score: 7 S Progress Note (SOAP) Subjective: tremor less body ache tolerate food and fluid well Objective: 10/15/18 12:50 Vital Signs Temperature 98.2 F 10/15/18 09:23 Pulse Rate 73 10/15/18 09:23 Respiratory Rate 18 10/15/18 09:23 Blood Pressure 123/80 10/15/18 09:23 O2 Sat by Pulse Oximetry (%) Laboratory Last Values WBC 5.5 K/mm3 (4.0-10.0) 10/14/18 07:00 RBC 4.76 M/mm3 (4.00-5.60) 10/14/18 07:00 Hgb 13.1 GM/dL (11.7-16.9) 10/14/18 07:00 Hct 40.8 % (35.4-49) 10/14/18 07:00 MCV 85.8 fl (80-96) 10/14/18 07:00 MCH 27.6 pg (25.7-33.7) 10/14/18 07:00 MCHC 32.2 g/dl (32.0-35.9) 10/14/18 07:00 RDW 13.7 % (11.9-15.9) 10/14/18 07:00 Plt Count 307 K/MM3 (134-434) D 10/14/18 07:00 MPV 9.0 fl (7.5-11.1) 10/14/18 07:00 Sodium 139 mmol/L (136-145) 10/14/18 07:00 Potassium 4.0 mmol/L (3.5-5.1) 10/14/18 07:00 Chloride 103 mmol/L (98-107) 10/14/18 07:00 Carbon Dioxide 28 mmol/L (21-32) 10/14/18 07:00 Anion Gap 8 MMOL/L (8-16) 10/14/18 07:00 BUN 12 mg/dL (7-18) 10/14/18 07:00 Creatinine 0.9 mg/dL (0.55-1.3) 10/14/18 07:00 Est GFR (CKD-EPI)AfAm 126.02 10/14/18 07:00 Est GFR (CKD-EPI)NonAf 108.73 10/14/18 07:00 Random Glucose 106 mg/dL (74-106) 10/14/18 07:00 Calcium 8.8 mg/dL (8.5-10.1) 10/14/18 07:00 Total Bilirubin 0.4 mg/dL (0.2-1) 10/14/18 07:00 AST 32 U/L (15-37) 10/14/18 07:00 ALT 43 U/L (13-61) 10/14/18 07:00 Alkaline Phosphatase 83 U/L (45-117) 10/14/18 07:00 Total Protein 7.0 g/dl (6.4-8.2) 10/14/18 07:00 Albumin 3.1 g/dl (3.4-5.0) L 10/14/18 07:00 RPR Titer Nonreactive (NONREACTIVE) 10/14/18 07:00 lab noted Assessment: 10/15/18 12:51 withdrawal sx Plan: continue detox
[2018-10-15] MEDS ORDERED: chlordiazePOXIDE HCL 10 MG CAPSULE PO PRN (21:00)
[2018-10-15] MEDS: THIAMINE HCL 100 MG TABLET (FP) PO SCH (22:04)
[2018-10-15] MEDS: chlordiazePOXIDE HCL 10 MG CAPSULE PO SCH (22:04)
[2018-10-16] MEDS: chlordiazePOXIDE HCL 10 MG CAPSULE PO SCH ×2 (05:53→13:16)
[2018-10-16 09:36] VITALS: BP 124/81; PULSE 86; TEMP 99.2
[2018-10-16] MEDS ORDERED: METHADONE HCL 10 MG TABLET (FOR DETOX USE ONLY) PO ONE (10:00)
[2018-10-16] MEDS: EMTRICITABINE 200MG/TENOFOVIR 300MG PO SCH (10:26)
[2018-10-16] MEDS: PRENATAL VITAMINS W/ FOLIC ACID TABLET (FP) PO SCH (10:26)
--- NOTE | 2018-10-16 19:19 | PN ---
[facility] CIWA - CIWA Score Nausea/Vomitin-No Nausea/No Vomiting Muscle Tremors: None Anxiety: 0-No Anxiety, at Ease Agitation: 2 Paroxysmal Sweats: No Perspiration Orientation: 0-Oriented Tacttile Disturbances: 0-None Auditory Disturbances: 0-None Visual Disturbances: 0-None Headache: 0-None Present CIWA-Ar Total Score: 2 S COWS - Scale Resting Pulse: 1= [place] 81-100 Sweatin= No chills or Flushing Restless Observation: 1= Difficult to Sit Still Pupil Size: 0= Normal to Room Light Bone or Joint Aches: 0= None Runny Nose/ Eye Tearin= None GI Upset > 30mins: 0= None Tremor Observation of Outstretched Hands: 0= None Yawning Observation: 0= None Anxiety or Irritability: 0= None Goose Flesh Skin: 0=Smooth Skin COWS Score: 2 [facility] Progress Note (SOAP) Subjective: Patient denies current Withdrawal / Detox symptoms and reports that he feels well overall at this time. Objective: PATIENT A & O X 3, OBSERVED AMBULATING ON UNIT UNASSISTED. IN NO ACUTE DISTRESS. 10/16/18 19:16 Vital Signs Temperature 99.2 F 10/16/18 09:35 Pulse Rate 86 10/16/18 09:35 Respiratory Rate 18 10/16/18 09:35 Blood Pressure 124/81 10/16/18 09:35 O2 Sat by Pulse Oximetry (%) Laboratory Tests 10/14/18 10/14/18 10/14/18 07:00 07:00 07:00 WBC 5.5 RBC 4.76 Hgb 13.1 Hct 40.8 MCV 85.8 MCH 27.6 MCHC 32.2 RDW 13.7 Plt Count 307 D MPV 9.0 Sodium 139 Potassium 4.0 Chloride 103 Carbon Dioxide 28 Anion Gap 8 BUN 12 Creatinine 0.9 Est GFR (CKD-EPI)AfAm 126.02 Est GFR (CKD-EPI)NonAf 108.73 Random Glucose 106 Calcium 8.8 Total Bilirubin 0.4 AST 32 ALT 43 Alkaline Phosphatase 83 Total Protein 7.0 Albumin 3.1 L RPR Titer Nonreactive LABS NOTED. Assessment: 10/16/18 19:16 COMPLETION OF DETOX REGIMEN. Plan: SINCE PATIENT DENIES CURRENT WITHDRAWAL / DETOX SYMPTOMS AND REPORTS THAT HE FEELS WELL OVERALL, AT PATIENT'S REQUEST, HE WAS GRANTED AN EARLY DISCHARGE FROM DETOX UNIT SO THAT HE MAY RETURN HOME TO ATTEND TO PERSONAL AFFAIRS. PATIENT ADVISED TO CONSIDER LOCAL 12-STEP / NA / AA OUTPATIENT SUPPORT GROUP PROGRAM FOR AFTERCARE.
--- NOTE | 2018-10-16 19:23 | DS ---
[facility] Detox Discharge Summary Admission Date: 10/13/18 Discharge Date: 10/16/18 - History Present History: Alcohol Dependence, Cannabis Dependence, Cocaine Dependence, Opioid Dependence Additional Comments: PATIENT DENIES CURRENT WITHDRAWAL / DETOX SYMPTOMS AND REPORTS THAT HE FEELS WELL OVERALL AT TIME OF DISCHARGE FROM DETOX UNIT. PATIENT ADVISED TO CONSIDER LOCAL 12-STEP / NA / AA OUTPATIENT SUPPORT GROUP PROGRAM FOR AFTERCARE. PATIENT VERBALIZED UNDERSTANDING OF RECOMMENDATION. PATIENT WAS DISCHARGED FROM DETOX UNIT IN STABLE MEDICAL CONDITION. Pertinent Past History: History Of Hepatitis C (Treated). - Physical Exam Results Vital Signs: Vital Signs Temperature 99.2 F 10/16/18 09:35 Pulse Rate 86 10/16/18 09:35 Respiratory Rate 18 10/16/18 09:35 Blood Pressure 124/81 10/16/18 09:35 O2 Sat by Pulse Oximetry (%) Pertinent Admission Physical Exam Findings: WITHDRAWAL SYMPTOMS. Laboratory Tests 10/14/18 10/14/18 10/14/18 07:00 07:00 07:00 WBC 5.5 RBC 4.76 Hgb 13.1 Hct 40.8 MCV 85.8 MCH 27.6 MCHC 32.2 RDW 13.7 Plt Count 307 D MPV 9.0 Sodium 139 Potassium 4.0 Chloride 103 Carbon Dioxide 28 Anion Gap 8 BUN 12 Creatinine 0.9 Est GFR (CKD-EPI)AfAm 126.02 Est GFR (CKD-EPI)NonAf 108.73 Random Glucose 106 Calcium 8.8 Total Bilirubin 0.4 AST 32 ALT 43 Alkaline Phosphatase 83 Total Protein 7.0 Albumin 3.1 L RPR Titer Nonreactive LABS NOTED. - Treatment Hospital Course: Detox Protocol Followed, Detoxed Safely, Responded well, Discharged Condition Good Patient has Accepted a Rehab Referral to: PT. ADVISED TO CONSIDER LOCAL 12-STEP / NA / AA OUTPATIENT SUPPORT GROUPS. - Diagnosis (1) Alcohol abuse Status: Acute (2) Opioid dependence with withdrawal Status: Acute (3) Cannabis dependence, uncomplicated Status: Chronic (4) Cocaine dependence, uncomplicated Status: Chronic - AMA Did Patient Leave Against Medical Advice: No
[2018-10-17] MEDS ORDERED: METHADONE HCL 5 MG TABLET (FOR DETOX USE ONLY) PO ONE (06:00)
== END 2018-10-16 10:45 | disposition home or self-care (01) | DRG 773 ==
LOC: YASAS 14:08 → Y3N 21:23
PROVIDERS: ADMIT Surgery; ATTEND Surgery
PROC: HZ2ZZZZ Detoxification Services for Substance Abuse Treatment (ICD-10-PCS; principal; 2018-10-13)
DX: F11.23 Opioid dependence with withdrawal (principal); F10.230 Alcohol dependence with withdrawal, uncomplicated; F10.220 Alcohol dependence with intoxication, uncomplicated; F14.20 Cocaine dependence, uncomplicated; F12.20 Cannabis dependence, uncomplicated; F17.210 Nicotine dependence, cigarettes, uncomplicated
CPT/HCPCS: 36415; 80053; 85027; 86593

== ENCOUNTER 2018-12-07 18:52 | Inpatient (IN) | payer OTHER ==
[2018-12-07 22:37] VITALS: BMI 24.2
--- NOTE | 2018-12-08 01:32 | HP ---
COWS - Scale Resting Pulse: 0= [place] 80 or Below Sweatin= No chills or Flushing Restless Observation: 5= Unable to Sit Still Pupil Size: 0= Normal to Room Light Bone or Joint Aches: 4=Acute Joint/Muscle Pain Runny Nose/ Eye Tearin= Nasal Congestion GI Upset > 30mins: 2= Nausea/Diarrhea Tremor Observation: 2= Slight Tremor Visible Yawning Observation: 0= None Anxiety or Irritability: 4=Extreme Anxiety Goose Flesh Skin: 0=Smooth Skin COWS Score: 18 CIWA Score Nausea/Vomitin-Mild Nausea/No Vomiting Muscle Tremors: 3 Anxiety: 4-Mod. Anxious/Guarded Agitation: 4-Moderately Restless Paroxysmal Sweats: 3 Orientation: 0-Oriented Tacttile Disturbances: 0-None Auditory Disturbances: 2-Mild Harshness/Frighten Visual Disturbances: 2-Mild Sensitivity Headache: 2-Mild CIWA-Ar Total Score: 21 - Admission Criteria [facility] Guidelines: Admission for Medically Managed Detox: Requires at least one of the followin. CIWA greater than 12 2. Seizures within the past 24 hours 3. Delirium tremens within the past 24 hours 4. Hallucinations within the past 24 hours 5. Acute intervention needed for co occurring medical disorder 6. Acute intervention needed for co occurring psychiatric disorder 7. Severe withdrawal that cannot be handled at a lower level of care (continued vomiting, continued diarrhea, abnormal vital signs) requiring intravenous medication and/or fluids 8. Patient presents the following: CIWA greater than 12 Admission Criteria Met: Admission criteria met Admission ROS [facility] Chief Complaint: C/O WITHDRAWAL SX'S Allergies/Adverse Reactions: Allergies Allergy/AdvReac Type Severity Reaction Status Date / Time No Known Drug Allergies Allergy Verified 12/07/18 22:30 apple AdvReac Intermediate Rash Verified 12/07/18 22:30 History of Present Illness: 38 Y.O.MALE WITH ALCOHOL AND HEROIN DEPENDENCE HERE FOR DETOX. CLIENT IS SELF REFERRED. LAST ADMITTED 09/2018. REPORTS RELAPSING SOON AFTER DC. PRESENTS TODAY WITH C/O WITHDRAWAL SX'S. COWS 18/CIWA 21. REPORTS LONGEST CLEAN TIME 3 MONTHS. HE REPORTS DAILY USE OF HEROIN AND ALCOHOL. LAST USE 1 DAY AGO. DENIES HX/O SZ, +DRUG OVERDOSE, NASAL/IV HEROIN USE. DOMICILED, EMPLOYED, DENIES LEGALS PMHX- DENIES PSYCH- DENIES Exam Limitations: No Limitations - Ebola screening Have you traveled outside of the country in the last 21 days: No (N) Have you had contact with anyone from an Ebola affected area: No Do you have a fever: No - Review of Systems Constitutional: Chills, Loss of Appetite, Malaise, Night Sweats, Changes in sleep EENT: reports: Nose Congestion Respiratory: reports: No Symptoms reported Cardiac: reports: No Symptoms Reported GI: reports: Diarrhea, Nausea, Poor Appetite, Poor Fluid Intake : reports: No Symptoms Reported Musculoskeletal: reports: Back Pain, Joint Pain, Neck Pain Integumentary: reports: Sweating Neuro: reports: Headache, Tremors Endocrine: reports: No Symptoms Reported Hematology: reports: No Symptoms Reported Psychiatric: reports: Orientated x3, Agitated, Anxious, Depressed (DENIES SI) Other Systems: Reviewed and Negative Patient History - Patient Medical History Hx Anemia: No Hx Asthma: No Hx Chronic Obstructive Pulmonary Disease (COPD): No Hx Cancer: No Hx Cardiac Disorders: No Hx Congestive Heart Failure: No Hx Hypertension: No Hx Hypercholesterolemia: No Hx Pacemaker: No HX Cerebrovascular Accident: No Hx Seizures: No Hx Dementia: No Hx Diabetes: No Hx Gastrointestinal Disorders: No Hx Liver Disease: No Hx Genitourinary Disorders: No Hx Sexually Transmitted Disorders: No Hx Renal Disease (ESRD): No Hx Thyroid Disease: No Hx Human Immunodeficiency Virus (HIV): No Hx Hepatitis C: Yes (treated) Hx Depression: No Hx Suicide Attempt: Yes (drug overdose) Hx Bipolar Disorder: No Hx Schizophrenia: No - Patient Surgical History Past Surgical History: Yes Hx Neurologic Surgery: No Hx Cataract Extraction: No Hx Cardiac Surgery: No Hx Lung Surgery: No Hx Breast Surgery: No Hx Breast Biopsy: No Hx Abdominal Surgery: No Hx Appendectomy: No Hx Cholecystectomy: No Hx Genitourinary Surgery: No Hx Orthopedic Surgery: Yes (2007 RIGHT KNEE ) Anesthesia Reaction: No - PPD History Previous Implant?: Yes Documented Results: Negative w/proof Implanted On Prior R Admission?: Yes Date: 05/11/18 Results: 0MM PPD to be Administered?: No - Smoking Cessation Smoking history: Current every day smoker Have you smoked in the past 12 months: Yes Aproximately how many cigarettes per day: 4 Cigars Per Day: 0 Hx Chewing Tobacco Use: No Initiated information on smoking cessation: Yes 'Breaking Loose' booklet given: 12/08/18 - Substance & Tx. History Hx Alcohol Use: Yes Hx Substance Use: Yes Substance Use Type: Alcohol, Cocaine, Heroin Hx Substance Use Treatment: Yes ([facility]) - Substances abused Heroin Substance route: Injection Amount used: 3 bags/day Age of first use: 36 Date of last use: 12/07/18 Alcohol Substance route: Oral Frequency: Daily Amount used: 1 pint vodka Age of first use: 14 Date of last use: 12/07/18 Cocaine Substance route: Inhalation Frequency: Daily Amount used: 1 GM Age of first use: 22 Date of last use: 12/07/18 Family Disease History - Family Disease History Family Disease History: Heart Disease: Mother (htn, living), Other: Father ( living), Mother, Brother (one, living, healthy), Daughter (age 3, healthy) Admission Physical Exam [facility] - Vital Signs Vital Signs: Vital Signs - 24 hr 12/07/18 22:32 Temperature 97.1 F L Pulse Rate 71 Respiratory 18 Rate Blood Pressure 132/86 - Diagnostic (1) IVDU (intravenous drug user) Current Visit: Yes Status: Acute (2) Substance induced mood disorder Current Visit: Yes Status: Acute (3) Opioid dependence with withdrawal Current Visit: No Status: Acute (4) Cannabis dependence, uncomplicated Current Visit: No Status: Chronic (5) Cocaine dependence, uncomplicated Current Visit: No Status: Chronic (6) Nicotine dependence Current Visit: No Status: Chronic Qualifiers: Nicotine product type: cigarettes Substance use status: uncomplicated Qualified Code(s): F17.210 - Nicotine dependence, cigarettes, uncomplicated Cleared for Admission [facility] - Detox or Rehab [facility] Level of Care: Medically Managed Detox Regimen/Protocol: Methadone/Librium Claeared for Rehab Admission: No Breathalyzer - Breathalyzer Breathalyzer: 0 Urine Drug Screen - Test Device Lot number: [id number] Expiration date: 09/16/19 - Control Is test valid?: Yes - Results Drug screen NEGATIVE: No Urine drug screen results: THC-Marijuana, ERVIN-Cocaine, MET-Methamphetamine, FEN- Fentanyl, MOP-Opiates Inpatient Rehab Admission - Rehab Decision to Admit Inpatient rehab admission?: No
[2018-12-08] MEDS ORDERED: MAG HYDROX/AL HYDROX/SIMETH 30 ML UNIT-DOSE CUP PO PRN (01:53)
[2018-12-08] MEDS ORDERED: METHADONE HCL 10 MG TABLET (FOR DETOX USE ONLY) PO ONE (01:53)
[2018-12-08] MEDS ORDERED: METHOCARBAMOL 500 MG TABLET PO PRN (01:53)
[2018-12-08] MEDS ORDERED: NICOTINE POLACRILEX 2 MG GUM BUC PRN (01:53)
[2018-12-08] MEDS ORDERED: ONDANSETRON *ODT* 4 MG TABLET SL PRN (01:53)
[2018-12-08] MEDS ORDERED: MAGNESIUM HYDROX 2400MG/30ML ORAL SUSPENSION 30 ML CUP PO PRN (01:53)
[2018-12-08] MEDS ORDERED: NALOXONE HCL 0.4 MG/ML VIAL IM PRN (01:53)
[2018-12-08] MEDS ORDERED: chlordiazePOXIDE HCL 25 MG CAPSULE PO ONE (01:53)
[2018-12-08] MEDS ORDERED: MAGNESIUM CITRATE 300 ML BOTTLE PO PRN (01:53)
[2018-12-08] MEDS ORDERED: BISMUTH SUBSALICYLATE 524 MG/30 ML UD PO PRN (01:53)
[2018-12-08] MEDS ORDERED: MELATONIN 5 MG TABLETS PO PRN (01:53)
[2018-12-08] MEDS ORDERED: hydrOXYzine HCL 25 MG TABLET (FP) PO PRN (01:53)
[2018-12-08] MEDS ORDERED: DICYCLOMINE HCL 10 MG CAPSULE PO PRN (01:53)
[2018-12-08] MEDS ORDERED: guaiFENesin 200 MG/10 ML 10 ML UNIT-DOSE CUPS PO PRN (01:53)
[2018-12-08] MEDS ORDERED: P-EPHED 60MG/TRIPROLIDI 2.5MG TABLET PO PRN (01:53)
[2018-12-08] MEDS ORDERED: MENTHOL/PHENOL 1 EACH UD MM PRN (01:53)
[2018-12-08] MEDS ORDERED: IBUPROFEN 400 MG TABLET (FP) PO PRN (01:53)
[2018-12-08] MEDS ORDERED: ACETAMINOPHEN 325 MG TABLET (FP) PO PRN ×2 (01:53)
[2018-12-08] MEDS: chlordiazePOXIDE HCL 25 MG CAPSULE PO SCH ×4 (05:32→22:30)
[2018-12-08] MEDS: PRENATAL VITAMINS W/ FOLIC ACID TABLET (FP) PO SCH (11:07)
[2018-12-08] MEDS: NICOTINE 14 MG/24 HOURS TOPICAL PATCH TD SCH (11:09)
--- NOTE | 2018-12-08 13:26 | PN ---
[facility] CIWA - CIWA Score Nausea/Vomitin-Mild Nausea/No Vomiting Muscle Tremors: 4-Moderate,w/Arms Extend Anxiety: 4-Mod. Anxious/Guarded Agitation: 4-Moderately Restless Paroxysmal Sweats: 1-Minimal Palms Moist Orientation: 0-Oriented Tacttile Disturbances: 1-Very Mild Itch/Numbness Auditory Disturbances: 0-None Visual Disturbances: 0-None Headache: 1-Very Mild CIWA-Ar Total Score: 16 BHS COWS - Scale Resting Pulse: 0= [place] 80 or Below Sweatin= Chills/Flushing Restless Observation: 0= Sits Still Pupil Size: 1= Pupils >than Normal Bone or Joint Aches: 2= Severe Diffuse Aches Runny Nose/ Eye Tearin= Nasal Congestion GI Upset > 30mins: 2= Nausea/Diarrhea Tremor Observation of Outstretched Hands: 2= Slight Tremor Visible Yawning Observation: 2= >3x During Session Anxiety or Irritability: 2=Irritable/Anxious Goose Flesh Skin: 3=Piloerection COWS Score: 16 S Progress Note (SOAP) Subjective: 38 years old male admitted on 12/08/18 for acute alcohol and opiate withdrawal sx management feeling tired low energy prefers to sleep on bed limited conversation with the provider tolerate food and fluid well Objective: 12/08/18 13:25 Vital Signs Temperature 98.1 F 12/08/18 10:00 Pulse Rate 64 12/08/18 10:00 Respiratory Rate 18 12/08/18 10:00 Blood Pressure 111/78 12/08/18 10:00 O2 Sat by Pulse Oximetry (%) 12/08/18 13:25 admission lab ordered for 12/09/18 Assessment: 12/08/18 13:25 alcohol and opiate withdrawal sx Plan: continue alcohol and opiate detox
[2018-12-08] MEDS: cloNIDine HCL 0.1 MG TABLET PO PRN (15:02)
[2018-12-08] MEDS: chlordiazePOXIDE HCL 25 MG CAPSULE PO PRN (15:02)
[2018-12-08 15:08] LABS: EPI CELLS 0.6 /HPF (0-5/HPF); HYALINE CASTS 1 /lpf (0-8); PH,URINE >= 9.0 (5.0-8.0); URINE APPEARANCE TURBID; URINE BACTERIA 1.3 /hpf (NEGATIVE); URINE BILIRUBIN NEGATIVE (NEGATIVE); URINE COLOR YELLOW; URINE GLUCOSE (UA) NEGATIVE (NEGATIVE); URINE KETONE NEGATIVE (NEGATIVE); URINE LEUK ESTERASE NEGATIVE (NEGATIVE); URINE NITRITE NEGATIVE (NEGATIVE); URINE PROTEIN 1+ (NEGATIVE); URINE WBC 2 /hpf (0-5)
[2018-12-08] MEDS: THIAMINE HCL 100 MG TABLET (FP) PO SCH (22:32)
[2018-12-09] MEDS: chlordiazePOXIDE HCL 25 MG CAPSULE PO SCH ×4 (06:39→23:24)
[2018-12-09] MEDS ORDERED: METHADONE HCL 5 MG TABLET (FOR DETOX USE ONLY) PO ONE (10:00)
[2018-12-09] MEDS ORDERED: hydrOXYzine HCL 25 MG TABLET (FP) PO PRN (10:07)
--- NOTE | 2018-12-09 10:22 | PN ---
[facility] CIWA - CIWA Score Nausea/Vomitin-Mild Nausea/No Vomiting Muscle Tremors: 4-Moderate,w/Arms Extend Anxiety: 3 Agitation: 3 Paroxysmal Sweats: 2 Orientation: 0-Oriented Tacttile Disturbances: 0-None Auditory Disturbances: 0-None Visual Disturbances: 0-None Headache: 1-Very Mild CIWA-Ar Total Score: 14 S COWS - Scale Resting Pulse: 1= [place] 81-100 Sweatin= Chills/Flushing Restless Observation: 3= Extraneous Movement Pupil Size: 1= Pupils >than Normal Bone or Joint Aches: 2= Severe Diffuse Aches Runny Nose/ Eye Tearin= Runny Nose/Eyes GI Upset > 30mins: 1= Stomach Cramp Tremor Observation of Outstretched Hands: 2= Slight Tremor Visible Yawning Observation: 1= 1-2x During Session Anxiety or Irritability: 2=Irritable/Anxious Goose Flesh Skin: 0=Smooth Skin COWS Score: 16 S Progress Note (SOAP) Subjective: Pt complains of being in withdrawal- says she is feeling anxious O Vital Signs - 24 hr 12/08/18 12/08/18 12/08/18 14:13 17:49 21:21 Temperature 98 F 97.8 F 98.4 F Pulse Rate 69 57 L 69 Respiratory 18 18 16 Rate Blood Pressure 148/90 138/81 134/80 12/09/18 12/09/18 12/09/18 03:30 06:39 09:25 Temperature 98.7 F 97.1 F L Pulse Rate 66 68 Respiratory 18 17 18 Rate Blood Pressure 133/75 127/75 Laboratory Tests 12/08/18 12:00 Urine Color Yellow Urine Appearance Turbid Urine pH >= 9.0 H D Ur Specific [place] 1.018 Urine Protein 1+ H Urine Glucose (UA) Negative Urine Ketones Negative Urine Blood Negative Urine Nitrite Negative Urine Bilirubin Negative Urine Urobilinogen 1.0 Ur Leukocyte Esterase Negative Urine WBC (Auto) 2 Urine RBC (Auto) 46.0 Urine Casts (Auto) 1 U Epithel Cells (Auto) 0.6 Urine Bacteria (Auto) 1.3 agitated tremulous a/p: 38 Y.O.MALE WITH ALCOHOL AND HEROIN DEPENDENCE HERE FOR DETOX- continue detox protocols
[2018-12-09] MEDS: PRENATAL VITAMINS W/ FOLIC ACID TABLET (FP) PO SCH (10:41)
[2018-12-09] MEDS: NICOTINE 14 MG/24 HOURS TOPICAL PATCH TD SCH (10:41)
[2018-12-09 12:13] LABS: HEMOGLOBIN 12.6 GM/dL (11.7-16.9); MCH 28.1 pg (25.7-33.7); MCHC 33.1 g/dl (32.0-35.9); MEAN CELL VOLUME 84.9 fl (80-96); PLATELET COUNT 267 K/MM3 (134-434); RBC 4.48 M/mm3 (4.00-5.60); RDW 13.8 % (11.9-15.9); WHITE BLOOD COUNT 6.3 K/mm3 (4.0-10.0)
[2018-12-09 12:29] LABS: ALBUMIN 3.4 g/dl (3.4-5.0); BILIRUBIN,TOTAL 0.6 mg/dL (0.2-1); BLOOD UREA NITROGEN 8.4 mg/dL (7-18); CALCIUM 9.3 mg/dL (8.5-10.1); CREATININE 0.8 mg/dL (0.55-1.3); POTASSIUM 3.7 mmol/L (3.5-5.1); TOT PROT 7.6 g/dl (6.4-8.2)
--- NOTE | 2018-12-09 14:03 | CONSULT ---
[facility] Psychiatric Consult - Data Date of interview: 12/09/18 Admission source: [facility] Identifying data: Patient is approached at bedside for psychiatric evaluation. Mr Hawkins refused to answer questions. Nursing staff is made aware.
[2018-12-09] MEDS: chlordiazePOXIDE HCL 25 MG CAPSULE PO PRN (18:25)
[2018-12-09] MEDS: cloNIDine HCL 0.1 MG TABLET PO PRN (20:32)
[2018-12-09] MEDS: THIAMINE HCL 100 MG TABLET (FP) PO SCH (23:23)
[2018-12-10] MEDS ORDERED: chlordiazePOXIDE HCL 10 MG CAPSULE PO PRN
[2018-12-10] MEDS: chlordiazePOXIDE HCL 10 MG CAPSULE PO SCH ×3 (06:03→17:02)
[2018-12-10] MEDS ORDERED: METHADONE HCL 10 MG TABLET (FOR DETOX USE ONLY) PO ONE (10:00)
[2018-12-10] MEDS: PRENATAL VITAMINS W/ FOLIC ACID TABLET (FP) PO SCH (11:16)
[2018-12-10] MEDS: NICOTINE 14 MG/24 HOURS TOPICAL PATCH TD SCH (11:17)
--- NOTE | 2018-12-10 13:10 | PN ---
[facility] CIWA - CIWA Score Nausea/Vomitin-Mild Nausea/No Vomiting Muscle Tremors: 2 Anxiety: 2 Agitation: 2 Paroxysmal Sweats: 1-Minimal Palms Moist Orientation: 0-Oriented Tacttile Disturbances: 0-None Auditory Disturbances: 0-None Visual Disturbances: 0-None Headache: 2-Mild CIWA-Ar Total Score: 10 BHS COWS - Scale Resting Pulse: 0= [place] 80 or Below Sweatin= Chills/Flushing Restless Observation: 0= Sits Still Pupil Size: 0= Normal to Room Light Bone or Joint Aches: 1= Mild Discomfort Runny Nose/ Eye Tearin= Nasal Congestion GI Upset > 30mins: 2= Nausea/Diarrhea Tremor Observation of Outstretched Hands: 2= Slight Tremor Visible Yawning Observation: 1= 1-2x During Session Anxiety or Irritability: 2=Irritable/Anxious Goose Flesh Skin: 0=Smooth Skin COWS Score: 10 BHS Progress Note (SOAP) Subjective: less tremor mild body aches otherwise doing ok today bp elevation begin amlodipin 10 mg po Objective: 12/10/18 13:12 Vital Signs Temperature 97.0 F L 12/10/18 10:02 Pulse Rate 72 12/10/18 10:02 Respiratory Rate 18 12/10/18 10:02 Blood Pressure 143/92 12/10/18 10:02 O2 Sat by Pulse Oximetry (%) Laboratory Last Values WBC 6.3 K/mm3 (4.0-10.0) 12/09/18 07:00 RBC 4.48 M/mm3 (4.00-5.60) 12/09/18 07:00 Hgb 12.6 GM/dL (11.7-16.9) 12/09/18 07:00 Hct 38.0 % (35.4-49) 12/09/18 07:00 MCV 84.9 fl (80-96) 12/09/18 07:00 MCH 28.1 pg (25.7-33.7) 12/09/18 07:00 MCHC 33.1 g/dl (32.0-35.9) 12/09/18 07:00 RDW 13.8 % (11.9-15.9) 12/09/18 07:00 Plt Count 267 K/MM3 (134-434) 12/09/18 07:00 MPV 9.0 fl (7.5-11.1) 12/09/18 07:00 Sodium 135 mmol/L (136-145) L 12/09/18 07:00 Potassium 3.7 mmol/L (3.5-5.1) 12/09/18 07:00 Chloride 102 mmol/L (98-107) 12/09/18 07:00 Carbon Dioxide 26 mmol/L (21-32) 12/09/18 07:00 Anion Gap 8 MMOL/L (8-16) 12/09/18 07:00 BUN 8.4 mg/dL (7-18) 12/09/18 07:00 Creatinine 0.8 mg/dL (0.55-1.3) 12/09/18 07:00 Est GFR (CKD-EPI)AfAm 132.27 12/09/18 07:00 Est GFR (CKD-EPI)NonAf 114.12 12/09/18 07:00 Random Glucose 100 mg/dL (74-106) 12/09/18 07:00 Calcium 9.3 mg/dL (8.5-10.1) 12/09/18 07:00 Total Bilirubin 0.6 mg/dL (0.2-1) 12/09/18 07:00 AST 32 U/L (15-37) 12/09/18 07:00 ALT 46 U/L (13-61) 12/09/18 07:00 Alkaline Phosphatase 92 U/L (45-117) 12/09/18 07:00 Total Protein 7.6 g/dl (6.4-8.2) 12/09/18 07:00 Albumin 3.4 g/dl (3.4-5.0) 12/09/18 07:00 Urine Color Yellow 12/08/18 12:00 Urine Appearance Turbid 12/08/18 12:00 Urine pH >= 9.0 (5.0-8.0) H D 12/08/18 12:00 Ur Specific [place] 1.018 (1.010-1.035) 12/08/18 12:00 Urine Protein 1+ (NEGATIVE) H 12/08/18 12:00 Urine Glucose (UA) Negative (NEGATIVE) 12/08/18 12:00 Urine Ketones Negative (NEGATIVE) 12/08/18 12:00 Urine Blood Negative (NEGATIVE) 12/08/18 12:00 Urine Nitrite Negative (NEGATIVE) 12/08/18 12:00 Urine Bilirubin Negative (NEGATIVE) 12/08/18 12:00 Urine Urobilinogen 1.0 mg/dL (0.2-1.0) 12/08/18 12:00 Ur Leukocyte Esterase Negative (NEGATIVE) 12/08/18 12:00 Urine WBC (Auto) 2 /hpf (0-5) 12/08/18 12:00 Urine RBC (Auto) 46.0 /hpf (0-4) 12/08/18 12:00 Urine Casts (Auto) 1 /lpf (0-8) 12/08/18 12:00 U Epithel Cells (Auto) 0.6 /HPF (0-5/HPF) 12/08/18 12:00 Urine Bacteria (Auto) 1.3 /hpf (NEGATIVE) 12/08/18 12:00 RPR Titer Nonreactive (NONREACTIVE) 12/09/18 07:00 lab noted uti bp elevation Assessment: 12/10/18 13:14 alcohol and opiate withdrawal sx Plan: continue alcohol and opiate detox
[2018-12-10 13:57] VITALS: BP 146/94; PULSE 65; TEMP 98.5
[2018-12-10] MEDS ORDERED: SULFAMETHOXAZOLE/TRIMETHOPRIM 800MG/160MG D.S. TABLET PO SCH (14:00)
[2018-12-10] MEDS ORDERED: amLODIPine BESYLATE 10 MG TABLET (FP) PO SCH (14:00)
[2018-12-11] MEDS ORDERED: chlordiazePOXIDE HCL 10 MG CAPSULE PO SCH (05:00)
[2018-12-11] MEDS ORDERED: METHADONE HCL 5 MG TABLET (FOR DETOX USE ONLY) PO ONE (06:00)
[2018-12-12] MEDS ORDERED: chlordiazePOXIDE HCL 10 MG CAPSULE PO ONE (05:00)
== END 2018-12-10 16:44 | disposition left against medical advice (07) | DRG 770 ==
LOC: YASAS 18:52 → Y3N 12-08 01:31
PROVIDERS: ADMIT Surgery; ATTEND Surgery
PROC: HZ2ZZZZ Detoxification Services for Substance Abuse Treatment (ICD-10-PCS; principal; 2018-12-08)
DX: F11.23 Opioid dependence with withdrawal (principal); F10.230 Alcohol dependence with withdrawal, uncomplicated; F14.20 Cocaine dependence, uncomplicated; F17.210 Nicotine dependence, cigarettes, uncomplicated; F19.24 Other psychoactive substance dependence with psychoactive substance-induced mood disorder; R03.0 Elevated blood-pressure reading, without diagnosis of hypertension; N39.0 Urinary tract infection, site not specified; Z91.5 Personal history of self-harm; Z59.0 Homelessness
CPT/HCPCS: 36415; 80053; 81003; 85027; 86593; J0735; Q0162